=== PATIENT | male | born 1955 ===

== ENCOUNTER 2020-05-10 10:12 | Outpatient (REF) | payer OTHER, SELFPAY ==
[2020-05-10 10:59] LABS: MANUAL DIFF FLAG NO
[2020-05-10 11:02] LABS: Basophils Absolute Auto 0.1 X10*3/uL (0.0-0.2); Basophils Percent Auto 0.8 % (0-2); Eosinophils Absolute Auto 0.6 X10*3/uL (0.0-0.4); Eosinophils Percent Auto 5.3 % (0-4); Hematocrit 43.3 % (42-52); Hemoglobin 14.7 g/dl (14.0-18.0); Imm Gran Abs Auto 0.05 X10*3/uL (0.00-0.03); Imm Gran Pct Auto 0.4 % (0.0-0.4); Lymphocytes Absolute Auto 1.9 X10*3/uL (1.2-4.9); Lymphocytes Percent Auto 16.1 % (20-40); Mean Corpuscular HGB Conc 33.9 g/dl (31.0-36.0); Mean Corpuscular Hemoglobin 31.5 pg (27.0-33.0); Mean Corpuscular Volume 92.9 fL (80-98); Monocytes Absolute Auto 0.9 X10*3/uL (0.1-1.2); Monocytes Percent Auto 7.1 % (2-11); Neutrophils Absolute Auto 8.4 X10*3/uL (2.0-8.3); Neutrophils Percent Auto 70.3 % (45-73); Platelet Count 230 X10*3/uL (160-400); Red Blood Count 4.66 X10*6/uL (4.60-5.80); Red Cell Distribution Width 13.2 % (11.0-16.0)
[2020-05-10 11:34] LABS: Alanine Aminotransferase 14 U/L (0-40); Albumin Level 4.7 g/dL (3.5-5.0); Alkaline Phosphatase 52 U/L (39-117); Anion Gap 16 (12-20); Aspartate Amino Transferase 18 U/L (5-37); Bilirubin Total 0.4 mg/dL (0.0-1.0); Blood Urea Nitrogen 7 mg/dL (9-16); Calcium 9.1 mg/dL (8.4-10.2); Carbon Dioxide 24 mmol/L (22-29); Chloride 100 mmol/L (96-108); Cholesterol 217 mg/dL; Estimated Glomerular Filt Rate > 60; Gamma Glutamyl Transpeptidase 56 U/L (11-51); Glucose Fasting 100 mg/dL (60-99); HDL Cholesterol 38 mg/dL; LDL Cholesterol Calculated 160 mg/dl; Potassium 4.7 mmol/l (3.3-5.1); Sodium 135 mmol/L (135-145); Total Protein 7.8 g/dL (6.5-8.0); Triglycerides 99 mg/dL
[2020-05-10 11:36] LABS: Estimated Average Glucose 97 mg/dL
[2020-05-10 11:42] LABS: Phosphorus 3.3 mg/dL (2.7-4.5)
[2020-05-10 13:58] LABS: Renal w Reflex Lab Use Only Order verified
== END 2020-05-10 10:13 | disposition home or self-care (01) ==
LOC: HO.LAB 10:12
PROVIDERS: Absent Provider Internal Medicine Nephrology; PCP Internal Medicine Geriatric Medicine; Visit Provider Nurse Practitioner Psychiatric/Mental Health
DX: F34.1 Dysthymic disorder (principal); E87.1 Hypo-osmolality and hyponatremia; I10 Essential (primary) hypertension; E78.5 Hyperlipidemia, unspecified
CPT/HCPCS: 36415; 80053; 80061; 82947; 82977; 83036; 84100; 85025

== ENCOUNTER 2020-11-15 10:13 | Outpatient (REF) | payer OTHER, SELFPAY ==
[2020-11-15 12:05] LABS: Anion Gap 14 (12-20); Blood Urea Nitrogen 8 mg/dL (9-16); Calcium 9.8 mg/dL (8.4-10.2); Carbon Dioxide 22 mmol/L (22-29); Chloride 104 mmol/L (96-108); Estimated Glomerular Filt Rate > 60; Phosphorus 3.2 mg/dL (2.7-4.5); Potassium 4.3 mmol/L (3.3-5.1); Sodium 136 mmol/L (135-145)
[2020-11-15 12:58] LABS: Renal w Reflex Lab Use Only Order verified
[2020-11-15 13:35] LABS: Creatinine Urine 219.69 mg/dL; Microalbum/Creatinine Ratio Ur 14.5 ug/mg cr
== END 2020-11-15 10:14 | disposition home or self-care (01) ==
LOC: HO.LAB 10:13
PROVIDERS: Visit Provider Internal Medicine Nephrology
DX: I10 Essential (primary) hypertension (principal); E87.1 Hypo-osmolality and hyponatremia; E87.5 Hyperkalemia
CPT/HCPCS: 36415; 80051; 82043; 82310; 82565; 84100; 84520

== ENCOUNTER 2021-07-07 12:35 | Outpatient (REF) | payer MEDICARE, SELFPAY ==
[2021-07-07 13:10] LABS: Basophils Absolute Auto 0.1 X10*3/uL (0.0-0.2); Basophils Percent Auto 0.7 % (0-2); Eosinophils Absolute Auto 1.7 X10*3/uL (0.0-0.4); Eosinophils Percent Auto 15.2 % (0-4); Hematocrit 41.5 % (42.0-52.0); Hemoglobin 14.1 g/dl (14.0-18.0); Imm Gran Pct Auto 0.9 % (0.0-0.4); Lymphocytes Absolute Auto 2.9 X10*3/uL (1.2-4.9); Lymphocytes Percent Auto 26.9 % (20-40); MANUAL DIFF FLAG NO; Mean Corpuscular Volume 91.2 fL (80.0-98.0); Mean Platelet Volume 10.1 fL (9.4-12.4); Monocytes Absolute Auto 0.8 X10*3/uL (0.1-1.2); Neutrophils Absolute Auto 5.3 x10*3/uL (2.0-8.3); Neutrophils Percent Auto 49.3 % (45-73); Platelet Count 283 X10*3/uL (160-400); Red Blood Count 4.55 X10*6/uL (4.60-5.80); Red Cell Distribution Width 12.7 % (11.0-16.0); White Blood Count 10.8 X10*3/uL (4.8-10.8)
[2021-07-07 14:04] LABS: Alanine Aminotransferase 21 U/L (0-40); Albumin Level 4.7 g/dL (3.5-5.0); Alkaline Phosphatase 54 U/L (39-117); Anion Gap 15 (12-20); Aspartate Amino Transferase 18 U/L (5-37); Bilirubin Total 0.5 mg/dL (0.0-1.0); Blood Urea Nitrogen 6 mg/dL (9-16); Calcium 9.8 mg/dL (8.4-10.2); Carbon Dioxide 25 mmol/L (22-29); Chloride 104 mmol/L (96-108); Cholesterol 235 mg/dL; Estimated Glomerular Filt Rate > 60; Glucose Fasting 92 mg/dL (60-99); HDL Cholesterol 32 mg/dL; LDL Cholesterol Calculated 180 mg/dl; Potassium 4.9 mmol/L (3.3-5.1); Sodium 139 mmol/L (135-145); Total Protein 7.9 g/dL (6.5-8.0); Triglycerides 119 mg/dL
[2021-07-07 14:08] LABS: Estimated Average Glucose 108 mg/dL; Hemoglobin A1c % 5.4 %
== END 2021-07-07 12:36 | disposition home or self-care (01) ==
LOC: HO.LAB 12:35
PROVIDERS: PCP Internal Medicine Geriatric Medicine; Visit Provider Nurse Practitioner Psychiatric/Mental Health
DX: F34.1 Dysthymic disorder (principal)
CPT/HCPCS: 36415; 80053; 80061; 83036; 85025

== ENCOUNTER 2021-11-06 10:42 | Outpatient (REF) | payer OTHER, SELFPAY ==
[2021-11-06 12:11] LABS: Anion Gap 12 (12-20); Blood Urea Nitrogen 10 mg/dL (9-16); Calcium 9.4 mg/dL (8.4-10.2); Carbon Dioxide 25 mmol/L (22-29); Chloride 104 mmol/L (96-108); Estimated Glomerular Filt Rate > 60; Potassium 4.9 mmol/L (3.3-5.1); Sodium 136 mmol/L (135-145)
== END 2021-11-06 10:43 | disposition home or self-care (01) ==
LOC: HO.LAB 10:42
PROVIDERS: PCP Internal Medicine Geriatric Medicine; Visit Provider Internal Medicine Nephrology
DX: I10 Essential (primary) hypertension (principal)
CPT/HCPCS: 36415; 80051; 82310; 82565; 84520

== ENCOUNTER → 2022-03-29 08:48 | Outpatient (BNVA) | payer OTHER, SELFPAY | PROVIDERS: PCP Internal Medicine Geriatric Medicine; Referring Provider Internal Medicine Geriatric Medicine; Visit Provider Internal Medicine Cardiovascular Disease | DX: R07.9 Chest pain, unspecified (principal) | CPT/HCPCS: 93005; 99202 ==

== ENCOUNTER → 2022-04-25 09:07 | Outpatient (REF) | payer OTHER, SELFPAY ==
--- NOTE | 2022-04-25 09:09 | CA_ITS ---
Acquisition Time: 2022-04-25 10:28:37 Total Exercise Time: 00:06:34 Test Indications: CP Medications: SEE CHART Protocol: BRADLEY Max HR: 133 BPM 86% of Pred: 153 BPM Max BP: 168/080 mmHG Max Work Load: 7.8 METS Exercise stress test with exercise 6 min 34 sec of Bradley protocol, achieving 86% MPHR, 7.8 METs, with fatigue and request to stop, without anginal symptoms, without arrythmia, with normotensive response to exercise, without EKG changes meeting criteria for ischemia. Test reviewed with Dr Martínez Referred By: Amilcar Randhawa Overread By: ANDRA GARCIA
== END ==
LOC: HO.CARD 09:07
PROVIDERS: PCP Internal Medicine Geriatric Medicine; Visit Provider Internal Medicine Cardiovascular Disease
DX: R07.9 Chest pain, unspecified (principal)
CPT/HCPCS: 93017

== ENCOUNTER 2022-05-01 08:36 | Outpatient (REF) | payer OTHER, SELFPAY ==
[2022-05-01 08:53] LABS: MANUAL DIFF FLAG NO
[2022-05-01 09:22] LABS: Basophils Absolute Auto 0.1 X10*3/uL (0.0-0.2); Basophils Percent Auto 0.6 % (0-2); Eosinophils Absolute Auto 1.2 X10*3/uL (0.0-0.4); Hematocrit 37.9 % (42.0-52.0); Hemoglobin 13.4 g/dl (14.0-18.0); Imm Gran Abs Auto 0.07 X10*3/uL (0.00-0.03); Imm Gran Pct Auto 0.6 % (0.0-0.4); Lymphocytes Absolute Auto 2.4 X10*3/uL (1.2-4.9); Lymphocytes Percent Auto 21.1 % (20-40); Mean Corpuscular HGB Conc 35.4 g/dl (31.0-36.0); Mean Corpuscular Hemoglobin 31.8 pg (27.0-33.0); Mean Corpuscular Volume 89.8 fL (80.0-98.0); Monocytes Absolute Auto 0.8 X10*3/uL (0.1-1.2); Monocytes Percent Auto 6.5 % (2-11); Neutrophils Absolute Auto 7.1 x10*3/uL (2.0-8.3); Neutrophils Percent Auto 61.2 % (45-73); Platelet Count 310 X10*3/uL (160-400); Red Blood Count 4.22 X10*6/uL (4.60-5.80); Red Cell Distribution Width 12.3 % (11.0-16.0); White Blood Count 11.6 X10*3/uL (4.8-10.8)
[2022-05-01 09:56] LABS: Alanine Aminotransferase 24 U/L (0-40); Albumin Level 4.6 g/dL (3.5-5.0); Alkaline Phosphatase 52 U/L (39-117); Anion Gap 14 (12-20); Aspartate Amino Transferase 55 U/L (5-37); Bilirubin Total 0.4 mg/dL (0.0-1.0); Blood Urea Nitrogen 9 mg/dL (9-16); Calcium 9.6 mg/dL (8.4-10.2); Carbon Dioxide 22 mmol/L (22-29); Chloride 104 mmol/L (96-108); Cholesterol 110 mg/dL; Estimated Glomerular Filt Rate > 60; Glucose Fasting 104 mg/dL (60-99); HDL Cholesterol 35 mg/dL; LDL Cholesterol Calculated 58 mg/dl; Potassium 4.8 mmol/L (3.3-5.1); Sodium 135 mmol/L (135-145); Total Protein 7.4 g/dL (6.5-8.0); Triglycerides 89 mg/dL
== END 2022-05-01 08:37 | disposition home or self-care (01) ==
LOC: HO.LAB 08:36
PROVIDERS: PCP Internal Medicine Geriatric Medicine; Visit Provider Internal Medicine Geriatric Medicine
DX: Z13.220 Encounter for screening for lipoid disorders (principal); I10 Essential (primary) hypertension
CPT/HCPCS: 36415; 80053; 80061; 85025

== ENCOUNTER → 2022-07-12 09:12 | Outpatient (BNVA) | payer OTHER, SELFPAY | PROVIDERS: PCP Internal Medicine Geriatric Medicine; Referring Provider Internal Medicine Geriatric Medicine; Visit Provider Internal Medicine Cardiovascular Disease | DX: R07.9 Chest pain, unspecified (principal); I10 Essential (primary) hypertension | CPT/HCPCS: 93005; 99212 ==

== ENCOUNTER 2022-09-07 08:18 | Outpatient (REF) | payer OTHER, SELFPAY ==
[2022-09-07 08:42] LABS: MANUAL DIFF FLAG NO
[2022-09-07 08:57] LABS: Basophils Absolute Auto 0.1 X10*3/uL (0.0-0.2); Basophils Percent Auto 0.9 % (0-2); Eosinophils Absolute Auto 1.7 X10*3/uL (0.0-0.4); Eosinophils Percent Auto 16.4 % (0-4); Imm Gran Abs Auto 0.04 X10*3/uL (0.00-0.03); Imm Gran Pct Auto 0.4 % (0.0-0.4); Lymphocytes Absolute Auto 2.1 X10*3/uL (1.2-4.9); Lymphocytes Percent Auto 21.1 % (20-40); Mean Corpuscular HGB Conc 35.1 g/dl (31.0-36.0); Mean Corpuscular Hemoglobin 31.3 pg (27.0-33.0); Mean Corpuscular Volume 89.2 fL (80.0-98.0); Mean Platelet Volume 9.8 fL (9.4-12.4); Monocytes Absolute Auto 0.8 X10*3/uL (0.1-1.2); Monocytes Percent Auto 7.9 % (2-11); Neutrophils Absolute Auto 5.4 x10*3/uL (2.0-8.3); Neutrophils Percent Auto 53.3 % (45-73); Platelet Count 284 X10*3/uL (160-400); Red Blood Count 4.15 X10*6/uL (4.60-5.80); Red Cell Distribution Width 12.9 % (11.0-16.0); White Blood Count 10.1 X10*3/uL (4.8-10.8)
[2022-09-07 09:05] LABS: Estimated Average Glucose 105 mg/dL; Hemoglobin A1c % 5.3 %
[2022-09-07 09:42] LABS: Alanine Aminotransferase 13 U/L (0-40); Albumin Level 4.3 g/dL (3.5-5.0); Alkaline Phosphatase 52 U/L (39-117); Anion Gap 13 (12-20); Aspartate Amino Transferase 15 U/L (5-37); Bilirubin Total 0.4 mg/dL (0.0-1.0); Blood Urea Nitrogen 9 mg/dL (9-16); Calcium 9.4 mg/dL (8.4-10.2); Carbon Dioxide 25 mmol/L (22-29); Chloride 101 mmol/L (96-108); Cholesterol 119 mg/dL; Estimated Glomerular Filt Rate > 60; Glucose Fasting 101 mg/dL (60-99); Glucose Random 101 mg/dL (60-115); HDL Cholesterol 37 mg/dL; LDL Cholesterol Calculated 73 mg/dl; Potassium 4.8 mmol/L (3.3-5.1); Sodium 134 mmol/L (135-145); Total Protein 6.8 g/dL (6.5-8.0); Triglycerides 46 mg/dL
== END 2022-09-07 08:19 | disposition home or self-care (01) ==
LOC: HO.LAB 08:18
PROVIDERS: PCP Internal Medicine Geriatric Medicine; Visit Provider Nurse Practitioner Psychiatric/Mental Health
DX: F34.1 Dysthymic disorder (principal)
CPT/HCPCS: 36415; 80053; 80061; 82947; 83036; 85025

== ENCOUNTER → 2022-10-24 09:50 | Outpatient (BNVA) | payer OTHER, SELFPAY | PROVIDERS: PCP Internal Medicine Geriatric Medicine; Visit Provider Internal Medicine Cardiovascular Disease | DX: R07.9 Chest pain, unspecified (principal); I10 Essential (primary) hypertension | CPT/HCPCS: 99212 ==

== ENCOUNTER 2022-12-11 08:08 | Outpatient (REF) | payer OTHER, SELFPAY ==
--- NOTE | ~2022-12-11 | XR_ITS ---
EXAMINATION: XR SHOULDER, LEFT CLINICAL INFORMATION: Left shoulder pain COMPARISON: None available. TECHNIQUE: AP external rotation, Grashey, scapular Y, and axillary views of the left shoulder. FINDINGS: The bones and soft tissues are normal. No fracture. Glenohumeral and acromioclavicular alignment is anatomic with normal joint space. No abnormal soft tissue calcifications. XR/XR shoulder LT min 2V IMPRESSION: Normal left shoulder.
--- NOTE | ~2022-12-11 | XR_ITS ---
EXAMINATION: XR SHOULDER, RIGHT CLINICAL INFORMATION: Right shoulder pain COMPARISON: None available. TECHNIQUE: AP external rotation, Grashey, scapular Y, and axillary views of the right shoulder. FINDINGS: The bones and soft tissues are normal. No fracture. Glenohumeral alignment is anatomic with normal joint space. There are mild degenerative changes right acromioclavicular joint with spurring. No abnormal soft tissue calcifications. XR/XR shoulder RT min 2V IMPRESSION: Mild degenerative changes in the right acromioclavicular joint
--- NOTE | ~2022-12-11 | XR_ITS ---
EXAMINATION: XR CERVICAL SPINE CLINICAL INFORMATION: Neck pain COMPARISON: None TECHNIQUE: 6 views of the cervical spine, inclusive of flexion and extension views, were obtained. FINDINGS: There are postsurgical changes seen in the cervical spine with hardware in the identified at the level of C5-C6 and C6-C7 with almost complete fusion of C5-C6 intervertebral disc space and fusion of C5-C7. There is narrowing cough of C3-C4 and C4-C5 intervertebral disc spaces. Marginal spurring present at the level of C3 C3 and C4. Neuroforamina are not encroached. Soft tissues are normal. There is no fracture seen. XR/XR cervical spine 5V IMPRESSION: Postsurgical changes with hardware in place. Degenerative changes seen at the level of C3-C4 and C4-C5.
== END 2022-12-11 08:09 | disposition home or self-care (01) ==
LOC: HO.XRAY 08:08
PROVIDERS: PCP Internal Medicine Geriatric Medicine; Visit Provider Internal Medicine Geriatric Medicine
DX: M54.2 Cervicalgia (principal); M25.511 Pain in right shoulder; M25.512 Pain in left shoulder
CPT/HCPCS: 72050; 73030

== ENCOUNTER 2023-04-05 11:55 | Outpatient (AMB) | payer OTHER, SELFPAY ==
--- NOTE | 2023-04-05 12:02 | HO.NEPHOV_ITS ---
HPI HPI Comments History of Present Illness Details Yogesh was seen in follow-up of his hypertension. He feels well. He does not have any chest pain, shortness of breath, proximal nocturnal dyspnea, orthopnea, pedal edema or urinary symptoms. He has no orthostatic symptoms either. He checks his blood pressure at home and is at goal. He is tolerating all his medications including angiotensin receptor michael. He avoids nonsteroidal anti-inflammatory medications and maintains good hydration. He has no history of recent drug use. He has no proteinuria. He monitors his blood pressure closely at home and is at goal. [facility] Surgical History History of surgery on arm History of left knee surgery Family History Mother Diabetes Father Heart disease Social History Alcohol intake: current Alcohol intake frequency: holidays/special occasions only Patient Tobacco Use Status: Never used Tobacco Vital Signs 04/05/23 12:03 Height 5 ft 5.5 in Weight 165 lb 6 oz BMI 27.1 BP 110/60 Blood Pressure Location Rt brachial Position Sitting Pulse 68 Pulse Source Pulse Oximeter Physical Exam Vital Signs: Last Vital Signs Pulse 68 04/05/23 12:03 BP 110/60 04/05/23 12:03 BMI result Body Mass Index 27.1 Const General: comfortable and no acute distress Orientation/consciousness: patient oriented x3 HEENT Head: Yes normocephalic Mouth: Normal oral and palatal mucosa present Eyes EOM: EOMs intact bilaterally Neck Neck: Yes supple Resp Auscultation: clear to auscultation bilaterally Cardio Jugular venous distension: no JVD Rate: regular rate GI Palpation (GI): Soft to palpation Auscultation: normal bowel sounds General: Yes no CVA tenderness Back/Spine/Pelvis Back: no CVA tenderness Skin General skin exam: no rashes or lesions noted Neuro General: patient oriented x3 and moves all extremities Extrem General: Yes no pedal edema Assessment & Plan Assessment & Plan (1) Essential hypertension: Code(s): I10 - Essential (primary) hypertension Plan Yogesh has longstanding hypertension and currently his blood pressure is at goal. He monitors his blood pressure at home every day. He is tolerating all his current medications including angiotensin receptor michael. His serum potassium and renal functions are at baseline. He is not known to have any proteinuria. He clinically has no signs of heart failure. He denies having retinopathy. I did not make any medication changes today. No refills requested. Follow-up blood work and urine studies ordered. All questions answered. Follow-up given. Orders: Orders Electrolytes 04/05/23 I10 - Essential (primary) hypertension Calcium 04/05/23 I10 - Essential (primary) hypertension Blood Urea Nitrogen 04/05/23 I10 - Essential (primary) hypertension Creatinine 04/05/23 I10 - Essential (primary) hypertension Protein Creatinine Ratio, Ur 04/05/23 I10 - Essential (primary) hypertension Coding Level of Care Code Est Pt Level 3 (59783) Diagnoses Essential hypertension I10 Results Reviewed Nephrology Results: Hgb 13.0 g/dl (14.0-18.0) L 09/07/22 WBC 10.1 X10*3/uL (4.8-10.8) 09/07/22 Plt Count 284 X10*3/uL (160-400) 09/07/22 Sodium 134 mmol/L (135-145) L 09/07/22 Potassium 4.8 mmol/L (3.3-5.1) 09/07/22 Chloride 101 mmol/L (96-108) 09/07/22 Carbon Dioxide 25 mmol/L (22-29) 09/07/22 BUN 9 mg/dL (9-16) 09/07/22 Creatinine 0.87 mg/dL (0.5-1.4) 09/07/22 Calcium 9.4 mg/dL (8.4-10.2) 09/07/22
[2023-04-05 12:03] VITALS: BP 110/60; PULSE 68; BMI 27.1
== END 2023-04-05 12:23 | disposition home or self-care (01) ==
PROVIDERS: PCP Internal Medicine Geriatric Medicine; Visit Provider Internal Medicine Nephrology
DX: I10 Essential (primary) hypertension (principal)
CPT/HCPCS: 99213

== ENCOUNTER → 2023-04-05 11:55 | Outpatient (BNVA) | payer OTHER, SELFPAY | PROVIDERS: PCP Internal Medicine Geriatric Medicine; Visit Provider Internal Medicine Nephrology | DX: I10 Essential (primary) hypertension (principal) | CPT/HCPCS: 99212 ==

== ENCOUNTER 2023-04-29 09:22 | Outpatient (AMB) | payer OTHER, SELFPAY ==
[2023-04-29 09:43] VITALS: BP 110/62; BMI 27.5
--- NOTE | 2023-04-29 09:43 | MHC.OFFVIS ---
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 Accompanied by: Self / Same As Patient Allergies lisinopril [LISINOPRIL] Allergy (Unknown, Verified 04/05/23 12:05) LIP SWELLING Medication List - Last Reconciled 04/29/23 by Amilcar Randhawa MD amlodipine 10 mg PO DAILY aripiprazole 5 mg PO DAILY atorvastatin 20 mg PO DAILY clonidine HCl 0.2 mg PO BEDTIME docusate sodium 100 mg PO BID melatonin 10 mg PO BEDTIME metoprolol succinate ER 75 mg PO DAILY mirtazapine 30 mg PO BEDTIME telmisartan 40 mg PO DAILY trazodone 50 mg PO BEDTIME zolpidem 10 mg PO BEDTIME PRN HPI HPI Comments History of Present Illness Details Pleasant 67 gentleman here for follow-up. He was seen previously with chest discomfort. He was referred for exercise stress test where he was able to exercise for 6 minutes 34 seconds and achieved 86% of his maximum predicted heart rate and 7.8 metabolic equivalents. He had a normal blood pressure response to exercise. He did not have any chest discomfort or EKG changes. His returning for follow-up. He said 2-3 days ago he had left-sided pressure-like sensation on a small area of the chest. He said this would come and go and lasted approximately 30 minutes. He said he has been exercising regularly including some running and weights and does not get any symptoms with exercise. He has exercised after this event on Saturday and did not have any symptoms. Blood pressure control is good. 10/24/22: He returns for follow-up. He has been active and exercising in the gym without any exertional symptoms. Occasionally gets left-sided pressure-like feeling lasting for 3 seconds usually when he sitting down watching television. He is compliant with medications. His blood pressure control is good. 04/29/2023: He returns for follow-up. He said he had some more discomfort in October but since then has not had any chest discomfort. Denying any other issues currently. Blood pressure is well controlled on multiple medications. He follows with Nephrology. [facility] Surgical History History of surgery on arm History of left knee surgery Family History Mother Diabetes Father Heart disease Social History Alcohol intake: current Alcohol intake frequency: holidays/special occasions only Patient Tobacco Use Status: Never used Tobacco Review of Systems Const Reports chills, Reports fatigue, Reports fever(s), Reports frequent falls, Reports weakness, Reports weight gain and Reports weight loss ENT Reports dizziness Card Reports chest pain, Reports leg edema, Reports lightheadedness, Reports palpitations, Reports dyspnea and Reports dyspnea on exertion Resp Reports cough, Reports dyspnea and Reports dyspnea on exertion GI Reports hematochezia Musc Reports abnormal gait, Reports muscle weakness, Reports numbness, Reports radiating pain into limb and Reports tingling Neuro Reports abnormal gait, Reports dizziness, Reports frequent falls, Reports numbness, Reports tingling and Reports weakness Endo Reports fatigue and Reports palpitations Physical Exam Vital Signs: Last Vital Signs BP 110/62 04/29/23 09:43 BMI result Body Mass Index 27.5 GENERAL APPEARANCE: in no acute distress, pleasant. NECK: no carotid bruit, no jugular venous distention. SKIN: no suspicious lesions, warm and dry. HEART: no murmurs, regular rate and rhythm. LUNGS: clear to auscultation bilaterally. ABDOMEN: soft, nontender. EXTREMITIES: no edema. PERIPHERAL PULSES: equal. NEUROLOGIC: No gross deficits, AAO X 3 Assessment & Plan Assessment & Plan (1) Essential hypertension: Code(s): I10 - Essential (primary) hypertension (2) Chest pain: Code(s): R07.9 - Chest pain, unspecified Plan Pleasant 67 year gentleman here for follow-up. He has background of non anginal chest discomfort. He has not had any symptoms for many months. Clinically stable. Blood pressure is well controlled on multiple medications including amlodipine, clonidine, metoprolol and telmisartan. He follows with Nephrology for hypertension. Follow-up with us in 6 months. Thank you for allowing me to participate in the care of your patient. Please feel free to contact me if you have any questions. Coding Level of Care Code Est Pt Level 3 (42686) Diagnoses Essential hypertension I10 Chest pain R07.9
== END 2023-04-29 10:03 | disposition home or self-care (01) ==
PROVIDERS: PCP Internal Medicine Geriatric Medicine; Visit Provider Internal Medicine Cardiovascular Disease
DX: I10 Essential (primary) hypertension (principal); R07.9 Chest pain, unspecified
CPT/HCPCS: 99213

== ENCOUNTER → 2023-04-29 09:22 | Outpatient (BNVA) | payer OTHER, SELFPAY | PROVIDERS: PCP Internal Medicine Geriatric Medicine; Visit Provider Internal Medicine Cardiovascular Disease | DX: I10 Essential (primary) hypertension (principal); R07.9 Chest pain, unspecified | CPT/HCPCS: 99212 ==

== ENCOUNTER 2023-07-02 08:04 | Outpatient (REF) | payer OTHER, SELFPAY ==
[2023-07-02 09:52] LABS: Anion Gap 9 (12-20); Blood Urea Nitrogen 10 mg/dL (9-16); Calcium 9.1 mg/dL (8.4-10.2); Carbon Dioxide 27 mmol/L (22-29); Chloride 108 mmol/L (96-108); Estimated Glomerular Filt Rate > 60; Potassium 3.8 mmol/L (3.3-5.1); Sodium 140 mmol/L (135-145)
[2023-07-02 10:26] LABS: Creatinine Urine 139.14 mg/dL; Protein/Creatinine Ratio, Ur 0.11 (<0.2); Total Protein Urine Random 15 mg/dL (<12)
== END 2023-07-02 08:05 | disposition home or self-care (01) ==
LOC: HO.LAB 08:04
PROVIDERS: PCP Internal Medicine Geriatric Medicine; Visit Provider Internal Medicine Nephrology
DX: I10 Essential (primary) hypertension (principal)
CPT/HCPCS: 36415; 80051; 82310; 82565; 82570; 84156; 84520

== ENCOUNTER 2023-08-09 09:23 | Outpatient (AMB) | payer OTHER, SELFPAY ==
[2023-08-09 10:23] VITALS: BP 130/74; PULSE 65; O2SAT 97; BMI 25.7
--- NOTE | 2023-08-09 10:23 | HO.NEPHOV_ITS ---
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 He feels well. He does not have any chest pain, shortness of breath, proximal nocturnal dyspnea, orthopnea, pedal edema or urinary symptoms. He has no orthostatic symptoms either. He checks his blood pressure at home and is at goal. He is tolerating all his medications including angiotensin receptor michael. He avoids nonsteroidal anti-inflammatory medications and maintains good hydration. He has no history of recent drug use. He has no proteinuria. He monitors his blood pressure closely at home and is at goal. [facility] Surgical History History of surgery on arm History of left knee surgery Family History Mother Diabetes Father Heart disease Social History Alcohol intake: current Alcohol intake frequency: holidays/special occasions only Patient Tobacco Use Status: Never used Tobacco Physical Exam Vital Signs: Last Vital Signs Pulse 65 08/09/23 10:23 BP 130/74 08/09/23 10:23 Pulse Ox 97 08/09/23 10:23 Oxygen Delivery Method Room Air 08/09/23 10:23 BMI result Body Mass Index 25.7 Const General: comfortable and no acute distress Orientation/consciousness: patient oriented x3 HEENT Head: Yes normocephalic Mouth: Normal oral and palatal mucosa present Eyes EOM: EOMs intact bilaterally Neck Neck: Yes supple Resp Auscultation: clear to auscultation bilaterally Cardio Jugular venous distension: no JVD Rate: regular rate GI Palpation (GI): Soft to palpation Auscultation: normal bowel sounds General: Yes no CVA tenderness Back/Spine/Pelvis Back: no CVA tenderness Skin General skin exam: no rashes or lesions noted Neuro General: patient oriented x3 and moves all extremities Extrem General: Yes no pedal edema Results Reviewed Nephrology Results: Hgb 13.0 g/dl (14.0-18.0) L 09/07/22 WBC 10.1 X10*3/uL (4.8-10.8) 09/07/22 Plt Count 284 X10*3/uL (160-400) 09/07/22 Sodium 140 mmol/L (135-145) 07/02/23 Potassium 3.8 mmol/L (3.3-5.1) 07/02/23 Chloride 108 mmol/L (96-108) 07/02/23 Carbon Dioxide 27 mmol/L (22-29) 07/02/23 BUN 10 mg/dL (9-16) 07/02/23 Creatinine 0.91 mg/dL (0.5-1.4) 07/02/23 Calcium 9.1 mg/dL (8.4-10.2) 07/02/23 Urine Creatinine 139.14 mg/dL 07/02/23 Protein/Creatinin Ratio 0.11 (<0.2) 07/02/23 Assessment & Plan Assessment & Plan (1) Essential hypertension: Code(s): I10 - Essential (primary) hypertension Category: Medical Plan Yogesh has longstanding hypertension and currently his blood pressure is at goal. He monitors his blood pressure at home every day. He is tolerating all his c urrent medications including angiotensin receptor michael. His serum potassium and renal functions are at baseline. He is not known to have any proteinuria. He clinically has no signs of heart failure. He denies having retinopathy. I did not make any medication changes today. No refills requested. Follow-up blood work ordered. All questions answered. Follow-up given. Orders: Orders Blood Urea Nitrogen Today I10 - Essential (primary) hypertension Electrolytes Today I10 - Essential (primary) hypertension Creatinine Today I10 - Essential (primary) hypertension
== END 2023-08-09 10:54 | disposition home or self-care (01) ==
PROVIDERS: PCP Internal Medicine Geriatric Medicine; Visit Provider Internal Medicine Nephrology
DX: I10 Essential (primary) hypertension (principal)
CPT/HCPCS: 99214

== ENCOUNTER 2023-08-09 09:23 | Outpatient (REF) | payer OTHER, SELFPAY ==
[2023-08-09 11:20] LABS: MANUAL DIFF FLAG NO
[2023-08-09 12:06] LABS: Basophils Absolute Auto 0.1 X10*3/uL (0.0-0.2); Basophils Percent Auto 0.9 % (0-2); Eosinophils Absolute Auto 0.7 X10*3/uL (0.0-0.4); Eosinophils Percent Auto 9.3 % (0-4); Hematocrit 41.3 % (42.0-52.0); Imm Gran Abs Auto 0.03 X10*3/uL (0.00-0.03); Imm Gran Pct Auto 0.4 % (0.0-0.4); Lymphocytes Absolute Auto 1.9 X10*3/uL (1.2-4.9); Mean Corpuscular HGB Conc 33.9 g/dl (31.0-36.0); Mean Corpuscular Hemoglobin 30.7 pg (27.0-33.0); Mean Corpuscular Volume 90.6 fL (80.0-98.0); Mean Platelet Volume 10.3 fL (9.4-12.4); Monocytes Absolute Auto 0.6 X10*3/uL (0.1-1.2); Monocytes Percent Auto 7.9 % (2-11); Neutrophils Absolute Auto 4.4 x10*3/uL (2.0-8.3); Neutrophils Percent Auto 56.5 % (45-73); Platelet Count 261 X10*3/uL (160-400); Red Blood Count 4.56 X10*6/uL (4.60-5.80); Red Cell Distribution Width 12.9 % (11.0-16.0); White Blood Count 7.7 X10*3/uL (4.8-10.8)
[2023-08-09 12:47] LABS: Alanine Aminotransferase 16 U/L (0-40); Albumin Level 4.7 g/dL (3.5-5.0); Alkaline Phosphatase 64 U/L (39-117); Anion Gap 13 (12-20); Aspartate Amino Transferase 18 U/L (5-37); Bilirubin Total 0.4 mg/dL (0.0-1.0); Blood Urea Nitrogen 10 mg/dL (9-16); Calcium 9.4 mg/dL (8.4-10.2); Carbon Dioxide 26 mmol/L (22-29); Chloride 106 mmol/L (96-108); Cholesterol 186 mg/dL (<200); Estimated Glomerular Filt Rate > 60; Glucose Random 105 mg/dL (60-115); HDL Cholesterol 44 mg/dL (>40); LDL Cholesterol Calculated 132 mg/dL (<100); Potassium 4.5 mmol/L (3.3-5.1); Sodium 140 mmol/L (135-145); Total Protein 7.9 g/dL (6.5-8.0); Triglycerides 54 mg/dL (<150)
[2023-08-09 12:49] LABS: ~HepC Num1 0.05 S/CO (0.00-0.79); ~Hepatitis C Antibody Nonreactive (Nonreactive)
== END 2023-08-09 09:24 | disposition home or self-care (01) ==
LOC: HO.LAB 09:23
PROVIDERS: PCP Internal Medicine Geriatric Medicine; Visit Provider Internal Medicine Nephrology
DX: Z11.59 Encounter for screening for other viral diseases (principal); Z12.5 Encounter for screening for malignant neoplasm of prostate; I10 Essential (primary) hypertension; E78.00 Pure hypercholesterolemia, unspecified; R73.02 Impaired glucose tolerance (oral)
CPT/HCPCS: 36415; 80053; 80061; 84153; 85025; 86803; 99212

== ENCOUNTER 2023-11-04 09:44 | Outpatient (AMB) | payer OTHER, SELFPAY ==
[2023-11-04 09:54] VITALS: BP 110/64; PULSE 60; BMI 26.9
--- NOTE | 2023-11-04 09:54 | MHC.OFFVIS ---
Vital Signs 11/04/23 09:54 Height 5 ft 5.5 in Weight 164 lb 7.437 oz BMI 26.9 BP 110/64 Blood Pressure Location Lt brachial Position Sitting Pulse 60 Pulse Source Monitor Intake Visit Reasons: 6 mth f/up Intake Note: pt is here for his 6mth f/up/ pt state that he is doing fine today but like a week ago he felt like a chest tightness that lasted roughly like 5-6 seconds then after that he have been feeling fine. 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 He was seen previously with chest discomfort. He was referred for exercise stress test where he was able to exercise for 6 minutes 34 seconds and achieved 86% of his maximum predicted heart rate and 7.8 metabolic equivalents. He had a normal blood pressure response to exercise. He did not have any chest discomfort or EKG changes. His returning for follow-up. He said 2-3 days ago he had left-sided pressure-like sensation on a small area of the chest. He said this would come and go and lasted approximately 30 minutes. He said he has been exercising regularly including some running and weights and does not get any symptoms with exercise. He has exercised after this event on Saturday and did not have any symptoms. Blood pressure control is good. 10/24/22: He returns for follow-up. He has been active and exercising in the gym without any exertional symptoms. Occasionally gets left-sided pressure-like feeling lasting for 3 seconds usually when he sitting down watching television. He is compliant with medications. His blood pressure control is good. 04/29/2023: He returns for follow-up. He said he had some more discomfort in October but since then has not had any chest discomfort. Denying any other issues currently. Blood pressure is well controlled on multiple medications. He follows with Nephrology. 11/04/23: He is here for follow-up. He has been doing well. No exertional complaints. Occasionally gets left-sided pressure-like sensation lasting for 3-5 seconds randomly. During exertion and activities he has no symptoms. Blood pressure is well controlled. He is following with Nephrology also. [facility] Surgical History History of surgery on arm History of left knee surgery Family History Mother Diabetes Father Heart disease Social History Alcohol intake: current Alcohol intake frequency: holidays/special occasions only Patient Tobacco Use Status: Never used Tobacco Review of Systems Const Denies chills, Denies fatigue, Denies fever(s), Denies frequent falls, Denies weakness, Denies weight gain and Denies weight loss ENT Denies dizziness Card Denies chest pain, Denies leg edema, Denies lightheadedness, Denies palpitations, Denies dyspnea and Denies dyspnea on exertion Resp Denies cough, Denies dyspnea and Denies dyspnea on exertion GI Denies hematochezia Musc Denies abnormal gait, Denies muscle weakness, Denies numbness, Denies radiating pain into limb and Denies tingling Neuro Denies abnormal gait, Denies dizziness, Denies frequent falls, Denies numbness, Denies tingling and Denies weakness Endo Denies fatigue and Denies palpitations Physical Exam Vital Signs: Last Vital Signs Pulse 60 11/04/23 09:54 BP 110/64 11/04/23 09:54 BMI result Body Mass Index 26.9 GENERAL APPEARANCE: in no acute distress, pleasant. NECK: no carotid bruit, no jugular venous distention. SKIN: no suspicious lesions, warm and dry. HEART: no murmurs, regular rate and rhythm. LUNGS: clear to auscultation bilaterally. ABDOMEN: soft, nontender. EXTREMITIES: no edema. PERIPHERAL PULSES: equal. NEUROLOGIC: No gross deficits, AAO X 3 Office Procedures EKG Details: Sinus rhythm 60 beats per minute, nonspecific ST changes, QTC 408 milliseconds. [id number], Complete Assessment & Plan Assessment & Plan (1) Essential hypertension: Code(s): I10 - Essential (primary) hypertension Category: Medical (2) Chest pain: Code(s): R07.9 - Chest pain, unspecified Category: Medical Plan [age] year gentleman with noncardiac chest pain. Blood pressure is well controlled. Overall stable and has been doing well. No exertional complaints. He is following with Nephrology closely for hypertension. I have advised him to see us in 1 year. If he is stable at 1 year then we will change his follow-up to as needed. Thank you for allowing me to participate in the care of your patient. Please feel free to contact me if you have any questions. Coding Level of Care Code Est Pt Level 3 (68487) Diagnoses Essential hypertension I10 Chest pain R07.9 CPT Codes EKG - CPT: 92923-[id number], Complete ([id number])
== END 2023-11-04 10:17 | disposition home or self-care (01) ==
PROVIDERS: PCP Internal Medicine Geriatric Medicine; Visit Provider Internal Medicine Cardiovascular Disease
DX: I10 Essential (primary) hypertension (principal); R07.9 Chest pain, unspecified
CPT/HCPCS: 93010; 99213

== ENCOUNTER → 2023-11-04 09:44 | Outpatient (BNVA) | payer OTHER, SELFPAY | PROVIDERS: PCP Internal Medicine Geriatric Medicine; Visit Provider Internal Medicine Cardiovascular Disease | DX: I10 Essential (primary) hypertension (principal); R07.9 Chest pain, unspecified | CPT/HCPCS: 93005; 99212 ==

== ENCOUNTER 2023-12-09 10:10 | Outpatient (REF) | payer OTHER, SELFPAY ==
[2023-12-09 11:21] LABS: Anion Gap 14 (12-20); Blood Urea Nitrogen 8 mg/dL (9-16); Carbon Dioxide 23 mmol/L (22-29); Chloride 106 mmol/L (96-108); Estimated Glomerular Filt Rate > 60; Potassium 3.6 mmol/L (3.3-5.1); Sodium 139 mmol/L (135-145)
== END 2023-12-09 10:11 | disposition home or self-care (01) ==
LOC: HO.LAB 10:10
PROVIDERS: PCP Internal Medicine Geriatric Medicine; Visit Provider Internal Medicine Nephrology
DX: I10 Essential (primary) hypertension (principal)
CPT/HCPCS: 36415; 80051; 82565; 84520

== ENCOUNTER 2024-01-03 09:05 | Outpatient (AMB) | payer OTHER, SELFPAY ==
--- NOTE | 2024-01-03 09:28 | HO.NEPHOV ---
Vital Signs 01/03/24 09:29 Height 5 ft 5.5 in Weight 164 lb 2 oz BMI 26.9 BP 110/60 Blood Pressure Location Rt brachial Position Sitting Pulse 73 Pulse Source Pulse Oximeter Pulse Oximetry (%) 96 Oxygen Delivery Method Room Air Intake Visit Reasons: Essential hypertension/ 4 MO FU Radiographer Mammographer Required: No Accompanied by: Self / Same As Patient Allergies lisinopril [LISINOPRIL] Allergy (Unknown, Verified 01/03/24 09:31) LIP SWELLING HPI Comments Details: Yogesh was seen in follow-up of his hypertension. He feels well. He does not have any chest pain, shortness of breath, proximal nocturnal dyspnea, orthopnea, pedal edema or urinary symptoms. He has no orthostatic symptoms either. He checks his blood pressure at home and is at goal. He is tolerating all his medications including angiotensin receptor michael. He avoids nonsteroidal anti-inflammatory medications and maintains good hydration. He has no history of recent drug use. He has no proteinuria. He monitors his blood pressure closely at home and is at goal. [facility] Surgical History History of surgery on arm History of left knee surgery Family History Mother Diabetes Father Heart disease Social History Alcohol intake: current Alcohol intake frequency: holidays/special occasions only Patient Tobacco Use Status: Never used Tobacco Review of Systems Const All systems reviewed & are unremarkable except as noted in HPI and below Physical Exam Vital Signs: Last Vital Signs Pulse 73 01/03/24 09:29 BP 110/60 01/03/24 09:29 Pulse Ox 96 01/03/24 09:29 Oxygen Delivery Method Room Air 01/03/24 09:29 BMI result Body Mass Index 26.9 Const General: comfortable and no acute distress Orientation/consciousness: patient oriented x3 HEENT Head: Yes normocephalic Mouth: Normal oral and palatal mucosa present Eyes EOM: EOMs intact bilaterally Neck Neck: Yes supple Resp Auscultation: clear to auscultation bilaterally Cardio Jugular venous distension: no JVD Rate: regular rate GI Palpation (GI): Soft to palpation Auscultation: normal bowel sounds General: Yes no CVA tenderness Back/Spine/Pelvis Back: no CVA tenderness Skin General skin exam: no rashes or lesions noted Neuro General: patient oriented x3 and moves all extremities Extrem General: Yes no pedal edema Results Reviewed Nephrology Results: Hgb 14.0 g/dl (14.0-18.0) 08/09/23 WBC 7.7 X10*3/uL (4.8-10.8) 08/09/23 Plt Count 261 X10*3/uL (160-400) 08/09/23 Sodium 139 mmol/L (135-145) 12/09/23 Potassium 3.6 mmol/L (3.3-5.1) 12/09/23 Chloride 106 mmol/L (96-108) 12/09/23 Carbon Dioxide 23 mmol/L (22-29) 12/09/23 BUN 8 mg/dL (9-16) L 12/09/23 Creatinine 1.04 mg/dL (0.5-1.4) 12/09/23 Calcium 9.4 mg/dL (8.4-10.2) 08/09/23 Urine Creatinine 139.14 mg/dL 07/02/23 Protein/Creatinin Ratio 0.11 (<0.2) 07/02/23 Assessment & Plan Assessment & Plan (1) Essential hypertension: Code(s): I10 - Essential (primary) hypertension Category: Medical Plan Yogesh has longstanding hypertension and currently his blood pressure is at goal. He monitors his blood pressure at home every day. He is tolerating all his current medications including angiotensin receptor mcihael. His serum potassium and renal functions are at baseline. He is not known to have any proteinuria. He clinically has no signs of heart failure. He denies having retinopathy. I did not make any medication changes today. No refills requested. Follow-up blood work ordered. All questions answered. Follow-up given. Orders: Orders Blood Urea Nitrogen Today I10 - Essential (primary) hypertension Creatinine Today I10 - Essential (primary) hypertension Electrolytes Today I10 - Essential (primary) hypertension Coding Level of Care Code Est Pt Level 4 (83533) Diagnoses Essential hypertension I10
[2024-01-03 09:29] VITALS: BP 110/60; PULSE 73; O2SAT 96; BMI 26.9
== END 2024-01-03 09:42 | disposition home or self-care (01) ==
PROVIDERS: PCP Internal Medicine Geriatric Medicine; Visit Provider Internal Medicine Nephrology
DX: I10 Essential (primary) hypertension (principal)
CPT/HCPCS: 99214

== ENCOUNTER → 2024-01-03 09:05 | Outpatient (BNVA) | payer OTHER, SELFPAY | PROVIDERS: PCP Internal Medicine Geriatric Medicine; Visit Provider Internal Medicine Nephrology | DX: I10 Essential (primary) hypertension (principal) | CPT/HCPCS: 99212 ==

== ENCOUNTER 2024-03-25 08:08 | Outpatient (REF) | payer OTHER, SELFPAY ==
[2024-03-25 09:38] LABS: Anion Gap 12 (12-20); Blood Urea Nitrogen 11 mg/dL (9-16); Carbon Dioxide 25 mmol/L (22-29); Chloride 108 mmol/L (96-108); Cholesterol 108 mg/dL (<200); Estimated Glomerular Filt Rate > 60; HDL Cholesterol 35 mg/dL (>40); LDL Cholesterol Calculated 64 mg/dL (<100); Potassium 3.6 mmol/L (3.3-5.1); Sodium 141 mmol/L (135-145); Triglycerides 46 mg/dL (<150)
--- OUTSIDE RECORDS SUMMARY | 2024-03-31 16:24 | XMS_ITS ---
Demographics Address [address] [place] [address] Preferred Language en Marital Status unmarried Islam Affiliation Unknown Race Ethnic Group or Author Organization [facility] Address [address] [place] [address] Support Name Relationship Address Phone Ana Sixto Emergency Contact [address] [place] [address] ELISE DRUMMOND Guarantor Unknown [phone] Care Team Providers Care Grid Operator Name Role Phone Name Jean GRIFFITH Primary Care Provider Eriberto Rey [phone] ALLERGIES Allergen (clinical drug ingredient) Drug/Non Drug Allergy documented on EMR Reaction Allergy Type Onset Date Status lisinopril Lisinopril Unknown Drug Allergy Activ e REASON FOR VISIT Patient presents today for a discuss colonoscopy MEDICATIONS Medication SIG (Take, Route, Frequency, Duration) Notes Start Date End Date Status Micardis 40 MG 1 tablet Orally Once a day Active amLODIPine Besylate 10 MG 1 tablet Orall y Once a day Active cloNIDine HCl 0.1 MG 1 tablet at bedtime Orally Once a day Active Melatonin 5 MG 1 tablet at bedtime as needed with food Orally Once a day Active Zolpidem Tartrate 10 MG 1 tablet at bedt monica as needed Orally Once a day Active Toprol XL 50 MG 1 1/2 tablet Orally Once a day Active Mirtazapine 15 MG 1 tablet at bedtime Orally Once a day Active traZODone HCl 50 MG Oral for 90 Active Metoprolol Tartrate 75 MG 1 tablet with food Orally Twice a day Active Atorvastatin Calcium 20 MG Oral for 90 Active ARIPiprazole 5 MG Oral for 90 Active Telmisartan 40 MG 1 tablet Orally Once a day Active SOCIAL HISTORY Tobacco Use: Social History Observation Description Date Details (start date - stop date) Never Smoker NA - NA Sex Assigned At : Social History Observation Description Sex Assigned At Unknown Tobacco Use/Smoking Question Answer Notes Patient is a nonsmoker Alcohol Screen Question Answer Notes Did you have a drink containing alcohol in the p ast year? Yes How often did you have a dri nk containing alcohol in the past year? Never (0 point) Points 0 Interpretation Negative PROBLEMS Problem Type ICD Code Onset Dates Problem Status W/U Status Risk SNOMED Code Notes Problem Chronic constipation (K59.09) Active confirmed Chronic constipation (617381809) VITAL SIGNS BMI 24.36 kg/m2 02/25/2024 Blood pressure systolic 00 mm Hg 02/25/20 24 Blood pressure diastolic 00 mm Hg 024 Height 69 in 02/25/2024 Weight 165 lbs 02/25/2024 Encounters Encounter Location Date Provider Diagnosis [facility] [address] [place] [address] 02/25/2024 Eriberto Berry Hx of adenomatous colonic polyps Z86.010 ; Chronic constipation K59.09 ; Encounter for screening for malignant neoplasm of colon Z12.11 and Pre-procedural examination Z01.818 ASSESSMENTS Encounter Date Diagnosis Assessment Notes Treatment Notes Treatment Clinical Notes 02/25/2024 Hx of adenomatous colonic polyps (ICD-10 - Z86.010) 02/25/2024 Chronic constipation (ICD-10 - K59.09) 02/25/2024 Encounter for screening for malignant neoplasm of colon (ICD-10 - Z12.11) Eat very lightly 2 days before the colonoscopy and take 2 extra Dulcolax pills 2 days before the colonoscopy. 02/25/2024 Pre-procedural examination (ICD-10 - Z01.818) PLAN OF TREATMENT Treatment Notes Assessment Notes Encounter for screening for malignant neoplasm of colon Eat very lightly 2 days before the colonoscopy and take 2 extra Dulcolax pills 2 days before the colonoscopy. Future Test Test Name Order Date COLONOSCOPY 02/25/2024 Next Appt Details Follow Up: prn, Reason: Provider Name:Eriberto Smart , 06/15/2024 12:10:00 PM, [address] [place] [address] , [place], [place], [phone], Progress Notes * Examination Category Sub-Category Detail Notes General Examination GENERAL APPEARANCE: pleasant , well nourished, well developed, in no acute distress HEAD: EYES: sclera non-icteric EARS: NOSE: THROAT: NECK/THYROID: no cervical lymphade nopathy, neck supple HEART: S1, S2 normal CHEST: LUNGS: clear to auscultatio n bilaterally ABDOMEN: normal bowel sounds, no guarding or rigidity, no guarding or rigidity, no masses palpable, soft, nontender, nondistended NEUROLOGIC: alert and oriented SKIN: nonjaundiced, no spi ashkan angiomata EXTREMITIES: no edema PERIPHERAL PULSES: BACK: BREASTS: MUSCULOSKELETAL: MALE GENITOURINARY: LYMPH NODES: RECTAL EXAM: FEMALE GENITOURINARY: ORAL CAVITY: mucosa moist
--- OUTSIDE RECORDS SUMMARY | 2024-03-31 16:24 | XMS_ITS ---
Author Organization [facility] Address [address] [place] [address] Support Name Relationship Address Phone Ana Sixto Emergency Contact [address] [place] [address] ELISE DRUMMOND Guarantor Unknown [phone] Care Team Providers Care Pre Billing Clinician Name Role Phone Name Jean GRIFFITH Primary Care Provider Eriberto Rey [phone] REASON FOR VISIT colon screening Encounters Encounter Location Date Provider Diagnosis [facility] [address] [place] [address] 10/15/2023 Eriberto Smart PLAN OF TREATMENT Next Appt Details Provider Name:Eriberto Smart , 06/15/2024 12:10:00 PM, [address] [place] [address] , [place], [place], [phone],
--- OUTSIDE RECORDS SUMMARY | 2024-03-31 16:24 | XMS_ITS | Patient Health Record ---
Demographics Address [address] [place] [address] Preferred Language en Marital Status unmarried Restorationist Affiliation Unknown Race Ethnic Group or Author Organization [facility] Address [address] [place] [address] Support Name Relationship Address Phone Jose G Perezobi Emergency Contact [address] [place] [address] ELISE PEREZ Guarantor Unknown [phone] Care Team Providers Care Optometry Assistant Name Role Phone Name Jean GRIFFITH Primary Care Provider Eriberto Rey [phone] ALLERGIES Allergen (clinical drug ingredient) Drug/Non Drug Allergy documented on EMR Reaction Allergy Type Onset Date Status lisinopril Lisinopril Unknown Drug Allergy Activ e REASON FOR REFERRAL No Information MEDICATIONS Medication SIG (Take, Route, Frequency, Duration) [...] with food Orally Once a day Active Telmisartan 40 MG 1 tablet Orally Once a day Active traZODone HCl 50 MG Oral for 90 Active Metoprolol Tartrate 75 MG 1 tablet with food Orally Twice a day Active Toprol XL 50 MG 1 1/2 tablet Orally Once a day Active Atorvastatin Calcium 20 MG Oral for 90 Active ARIPiprazole 5 MG Oral for 90 Active Zolpidem Tartrate 10 MG 1 tablet at bedt monica as needed Orally Once a day Active Mirtazapine 15 MG 1 tablet at bedtime Orally Once a day Active IMMUNIZATIONS Vaccine Route Administration Date Status Comme nts Influenza Unknown 02/06/2018 Administered SOCIAL HISTORY Tobacco Use: Social History Observation [...] W/U Status Risk SNOMED Code Notes Problem Hx of adenomatous colonic polyps (Z86.010) Active confirmed 584423115 Problem Encounter for screening for malignant neoplasm of colon (Z12.11) Active confirmed 907252586 Problem Pre-procedural examination (Z01.818) Active confirmed 510607368090736 Problem Chronic constipation (K59.09) Active confirmed Chronic constipation (727976345) VITAL SIGNS Blood pressure diastolic 00 mm Hg 02/25/2024 Height 69 in 02/25/2024 Blood pressure systolic 00 mm Hg 02/25/2024 Weight 165 lbs 02/25/2024 BMI 24.36 kg/m2 02/25/2024 Encounters Encounter Location Date Provider Diagnosis [facility] [address] [place] [address] 09/12/2023 Eriberto Smart [facility] [address] [place] [address] 10/15/2023 Eriberto Smart [facility] [address] [place] [address] 02/25/2024 Eriberto Smart Hx of adenomatous colonic polyps Z86.010 ; Chronic constipation K59.09 ; Encounter for screening for malignant neoplasm of colon Z12.11 and Pre-procedural examination Z01.818 [facility] [address] [place] [address] 09/09/2023 Eriberto Smart [facility] [address] [place] [address] 10/08/2023 Eriberto Smart [facility] [address] [place] [address] 02/25/2024 Eriberto Smart ASSESSMENTS Encounter Date Diagnosis Assessment Notes Treatment [...] examination (ICD-10 - Z01.818) PLAN OF TREATMENT Future Test Test Name Order Date COLONOSCOPY 04/01/2018 COLONOSCOPY 02/25/2024 Next Appt Details Provider Name:Eriberto Smart , 06/15/2024 12:10:00 PM, [address] [place] [address], [phone], Insurance Providers Payer Name Payer Address Payer Phone Subscriber Number Group Number Insured Name Patient Relationship to Insured Coverage Start Date Coverage End Date [facility] [address] [place] [address] [id number] ELISE PEREZ Self - patient is the insured MEDICAL (GENERAL) HISTORY Medical History History ICD Code Tubular adenoma removed in ; negative colonoscopy 10-02-2010 except for diverticulosis and internal hemorrhoids GERD--EGD in 2005---small HH, no esophag itis, no Garcia's Insomnia Depression/Anxiety Hypertension Denies [place],DM,CVA,Lung disease,renal dise ase Gout Negative screening colonoscopy in 05/2018 Hyperlipidemia Surgical History Surgery Date(Month/Year) Left knee surgery Left wrist surgery
--- OUTSIDE RECORDS SUMMARY | 2024-03-31 16:24 | XMS_ITS ---
Author Organization [facility] Address [address] [place] [address] Support Name Relationship Address Phone Ana, Sixto Emergency Contact [address] [place] [address] ELISE DRUMMOND Guarantor Unknown [phone] Care Team Providers Care Retail Selling Specialist Name Role Phone Name Jean GRIFFITH Primary Care Provider Eriberto Rey [phone] REASON FOR VISIT 2 day bowel prep Encounters Encounter Location Date Provider Diagnosis [facility] [address] [place] [phone] 02/25/2024 Eriberto Smart PLAN OF TREATMENT Next Appt Details Provider Name:Eriberto Smart , 06/15/2024 12:10:00 PM, [address] [place] [address] , [place], [place], [phone],
== END 2024-03-25 08:09 | disposition home or self-care (01) ==
LOC: HO.LAB 08:08
PROVIDERS: Internal Medicine Nephrology; PCP Internal Medicine Geriatric Medicine; Visit Provider Internal Medicine Geriatric Medicine
DX: Z79.899 Other long term (current) drug therapy (principal); I10 Essential (primary) hypertension
CPT/HCPCS: 36415; 80051; 80061; 82565; 84520

== ENCOUNTER 2024-06-15 10:19 | Day surgery (SDC) | payer OTHER, SELFPAY ==
--- OUTSIDE RECORDS SUMMARY | 2024-04-07 07:20 | XMS_ITS ---
Demographics Address [address] [place] [address] Preferred Language en Marital Status unmarried Mandaen Affiliation Unknown Race Ethnic Group or Author Organization [facility] Address [address] [place] [address] Support Name Relationship Address Phone Ana Sixto Emergency Contact [address] [place] [address] ELISE DRUMMOND Guarantor Unknown [phone] Care Team Providers Care Lumpia Wrapper Maker Name Role Phone Name Jean GRIFFITH Primary Care Provider Eriberto Rey [phone] ALLERGIES Allergen (clinical drug ingredient) Drug/Non Drug [...] Chronic constipation (K59.09) Active confirmed Chronic constipation (198993828) VITAL SIGNS BMI 24.36 kg/m2 02/25/2024 Blood pressure systolic 00 mm Hg 02/25/20 24 Blood pressure diastolic 00 mm Hg 024 Height 69 in 02/25/2024 Weight 165 lbs 02/25/2024 Encounters Encounter Location Date Provider Diagnosis [facility] [address] [place] [address] 02/25/2024 Eriberto Berry Hx of adenomatous colonic [...] Provider Name:Eriberto Smart , 06/15/2024 12:10:00 PM, [address] [place] [address] , [place], [place], [phone], Progress Notes * Examination Category Sub-Category Detail [...]
--- OUTSIDE RECORDS SUMMARY | 2024-04-07 07:20 | XMS_ITS ---
Author Organization [facility] Address [address] [place] [address] Support Name Relationship Address Phone Sixto Perez Emergency Contact [address] [place] [address] ELISE PEREZ Guarantor Unknown [phone] Care Team Providers Care Medical Case Manager Name Role Phone Name Jean GRIFFITH Primary Care Provider Eriberto Rey [phone] REASON FOR VISIT 2 day bowel prep MEDICATIONS Medication SIG (Take, Route, Frequency, Duration) Notes Start Date End Date Status Dulcolax (colon prep) 5 MG Take 2 Dulcol ax 2 days before the colonoscopy, and take at 3:00 p.m and 7:00p.m. Orally Take 2 Dulcolax 2 days before, and two tablets twice a day for one day for 2 days 04/05/2024 Activ e MiraLax (colon prep) 17 GM/SCOOP Take 1/2 of a 238Gm bottle of Miralax mixed in 1 quart of Gatorade 2 days before the colonoscopy, and 1 238Gm bottle mixed with Gatorade or Crystal Light Orally Take the 1/2 bottle 2 days before the colonoscopy, and begin the full bottle of Miralax at 5:00 p.m. the day before the procedure for 2 days 04/05/2024 Active Encounters Encounter Location Date Provider Diagnosis [facility] [address] [place] [address] 02/25/2024 Eriberto Smart PLAN OF TREATMENT Medication Medication Name Sig Start Date Stop Date Notes Dulcolax (colon prep) 5 MG Take 2 Dulcol ax 2 days before the colonoscopy, and take at 3:00 p.m and 7:00p.m. Orally Take 2 Dulcolax 2 days before, and two tablets twice a day for one day for 2 days 04/05/2024 MiraLax (colon prep) 17 GM/SCOOP Take 1/2 of a 238Gm bottle of Miralax mixed in 1 quart of Gatorade 2 days before the colonoscopy, and 1 238Gm bottle mixed with Gatorade or Crystal Light Orally Take the 1/2 bottle 2 days before the colonoscopy, and begin the full bottle of Miralax at 5:00 p.m. the day before the procedure for 2 days 04/05/2024 Next Appt Details Provider Name:Eriberto Smart , 06/15/2024 12:10:00 PM, [address] [place] [address] , [place], [place], [phone],
--- OUTSIDE RECORDS SUMMARY | 2024-04-07 07:20 | XMS_ITS ---
Author Organization [facility] Address [address] [place] [address] Support Name Relationship Address Phone Ana Sixto Emergency Contact [address] [place] [address] ELISE DRUMMOND Guarantor Unknown [phone] Care Team Providers Care Vegetable Farming Supervisor Name Role Phone Name Jean GRIFFITH Primary Care Provider Eriberto Rey [phone] REASON FOR VISIT colon screening Encounters Encounter Location Date Provider Diagnosis [facility] [address] [place] [address] 10/15/2023 Eriberto Smart PLAN OF TREATMENT Next Appt Details Provider Name:Eriberto Smart , 06/15/2024 12:10:00 PM, [address] [place] [address] , [place], [place], [phone],
--- OUTSIDE RECORDS SUMMARY | 2024-04-07 07:20 | XMS_ITS | Patient Health Record ---
Author Organization [facility] Address [address] [place] [address] Support Name Relationship Address Phone Jose G Perezobi Emergency Contact [address] [place] [address] ELISE PEREZ Guarantor Unknown [phone] Care Team Providers Care Upper Cutter Name Role Phone Name Jean GRIFFITH Primary Care Provider Eriberto Rey [phone] ALLERGIES Allergen (clinical drug ingredient) Drug/Non Drug [...] at bedtime Orally Once a day Active Dulcolax (colon prep) 5 MG Take 2 Dulcol ax 2 days before the colonoscopy, and take at 3:00 p.m and 7:00p.m. Orally Take 2 Dulcolax 2 days before, and two tablets twice a day for one day for 2 days 04/05/2024 Active MiraLax (colon prep) 17 GM/SCOOP Take 1/2 [...] the procedure for 2 days 04/05/2024 Active IMMUNIZATIONS Vaccine Route Administration Date Status [...] of adenomatous colonic polyps (Z86.010) Active confirmed 548660924 Problem Encounter for screening for malignant neoplasm of colon (Z12.11) Active confirmed 093061889 Problem Pre-procedural examination (Z01.818) Active confirmed 845570266282020 Problem Chronic constipation (K59.09) Active confirmed Chronic constipation (819560443) VITAL SIGNS Blood pressure diastolic 00 mm Hg 02/25/2024 Height 69 in 02/25/2024 Blood pressure systolic 00 mm Hg 02/25/2024 Weight 165 lbs 02/25/2024 BMI 24.36 kg/m2 02/25/2024 Encounters Encounter Location Date Provider Diagnosis [facility] [address] [place] [phone] 09/12/2023 Eriberto Smart [facility] [address] [place] [address] 10/15/2023 Eriberto Smart [facility] [address] [place] [address] 02/25/2024 Eriberto Smart Hx of adenomatous colonic polyps Z86.010 ; Chronic constipation K59.09 ; Encounter for screening for malignant neoplasm of colon Z12.11 and Pre-procedural examination Z01.818 [facility] [address] [place] [address] 09/09/2023 Eriberto Smart [facility] [address] [place] [address] 10/08/2023 Eriberto Smart [facility] [address] [place] [phone] 02/25/2024 Eriberto Smart ASSESSMENTS Encounter Date Diagnosis [...] Provider Name:Eriberto Smart , 06/15/2024 12:10:00 PM, [address] [place] [address] , [place], [place], [phone], Insurance Providers Payer Name Payer Address Payer Phone Subscriber Number Group Number Insured Name Patient Relationship to Insured Coverage Start Date Coverage End Date [facility] [address] [place] [address] [id number] ELISE PEREZ Self - patient is the insured MEDICAL (GENERAL) HISTORY Medical History History ICD Code Tubular adenoma removed in ; negative colonoscopy 10-02-2010 except for diverticulosis and internal hemorrhoids GERD--EGD in 2005---small HH, no esophag itis, no Garcia's Insomnia Depression/Anxiety Hypertension Denies [place],DM,CVA,Lung disease,renal dise ase Gout Negative screening colonoscopy in 05/2018 Hyperlipidemia Surgical History Surgery Date(Month/Year) Left knee surgery Left wrist surgery
[2024-06-11 14:35] VITALS: BMI 24.4
[2024-06-15 10:52] VITALS: BMI 23.1
[2024-06-15 11:05] VITALS: BP 120/67; PULSE 58; RESP 16; TEMP 37.2; O2SAT 98
--- NOTE | 2024-06-15 12:26 | HO.ANESPROP2 ---
[facility] Active Problems Active Problems: All Active Problems Essential hypertension (Acute) Chest pain (Acute) Past Medical History Medical History Hyperlipidemia Insomnia Gout Depression with anxiety Chest pain HTN (hypertension) Family History Family History Mother Diabetes Father Heart disease Surgical History Surgical History History of esophagogastroduodenoscopy (EGD) H/O colonoscopy History of surgery on arm History of left knee surgery History of Problems with Anesthesia: No Social History Social History Alcohol intake: current Alcohol intake frequency: holidays/special occasions only Patient Tobacco Use Status: Never used Tobacco Use of substances other than those prescribed or required for medical reasons: No Are you DNR?: No Advance Directives: No Advance Directives Information Provided: Yes Meds Allergies Allergy/AdvReac Type Severity Reaction Status Date / Time lisinopril [LISINOPRIL] Allergy Unknown LIP Verified 01/03/24 09:31 SWELLING Active Medications: Current Medications Sodium Biphosphate/Sodium Phosphate (Sodium Phosphate,Bradley-Dibasic 133 Ml Enema) 133 ml FL ONCE PRN PRN Reason: Poor Colonoscopy Prep Results Home Medications ?Medication ?Instructions ?Recorded ?Confirmed ?Last Taken ?Type aripiprazole 5 mg tablet 5 mg PO DAILY 03/29/22 06/11/24 Unknown History atorvastatin 20 mg tablet 20 mg PO DAILY 03/29/22 06/11/24 Unknown History clonidine HCl 0.1 mg tablet 0.2 mg PO BEDTIME 03/29/22 06/11/24 Unknown History docusate sodium 100 mg capsule 100 mg PO BID 03/29/22 06/11/24 Unknown History melatonin 5 mg tablet 10 mg PO BEDTIME 03/29/22 06/11/24 Unknown History mirtazapine 30 mg tablet 30 mg PO BEDTIME 03/29/22 06/11/24 Unknown History telmisartan 40 mg tablet 40 mg PO DAILY 03/29/22 06/11/24 Unknown History trazodone 50 mg tablet 50 mg PO BEDTIME 03/29/22 06/11/24 Unknown History zolpidem 10 mg tablet 10 mg PO BEDTIME PRN Insomnia 03/29/22 06/11/24 Unknown History ciclopirox 8 % topical solution 1 appl topical BEDTIME 11/04/23 06/11/24 Unknown History Exam Height,Weight and Vital Signs: Height 5 ft 9 in Weight 71 kg Last Vital Signs Temp 99.0 F 06/15/24 11:05 Pulse 58 06/15/24 11:05 Resp 16 06/15/24 11:05 BP 120/67 06/15/24 11:05 Pulse Ox 98 06/15/24 11:05 O2 Del Method Room Air 06/15/24 11:05 Airway Mallampati Class: II TM Dist: >3cm Neck ROM: Full Partial: Upper and Lower Loose/Missing/Broken Teeth: Yes Heart: RRR Lungs: CTA Assessment and Plan Assessment Anesthesia Assessment: Anesthesia Plan Discussed and Chart Reviewed Final Anesthetic Review History of Problems with Anesthesia: No NPO: Yes ASA Class: II Final Preanesthetic Review: Meds/Allgs Chart Reviewed, Consent Obtained/Reviewed and Anes Risks/Benef Reviewed Patient Risk: Low Procedure Risk: Low Anesthetic Plan Anesthetic Plan: MAC: Disposition: Standard PACU
[2024-06-15 14:22] VITALS: BP 122/76; PULSE 64; RESP 16; TEMP 36.3; O2SAT 98
--- NOTE | 2024-06-15 14:26 | P.BOP_ITS ---
Brief Operative Note Date of Service: 06/15/24 Pre-op diagnosis: Screening Post-op diagnosis: other (Colon polyps) Procedure: Colonoscopy to the cecum and TI with hot snare polypectomy x 4 Surgeon: Eriberto Smart MD Anesthesia: MAC Was an Clothing And Textiles Teacher used for this Procedure?: No Estimated blood loss (mL): 0 Pathology: other (A. Ascending colon polyps B. Polyp at 60cm C. Polyp at 30cm) Condition: stable Disposition: PACU
[2024-06-15 14:37] VITALS: BP 123/66; PULSE 65; RESP 16; O2SAT 99
[2024-06-15 14:44] VITALS: BP 129/70; PULSE 56; RESP 16; TEMP 36.7; O2SAT 99
--- NOTE | 2024-06-16 01:21 | OP_ITS ---
DATE OF SERVICE: 06/15/2024 SURGEON: Eriberto Smart MD INDICATIONS: Patient presents for evaluation of personal history of tubular adenoma of the colon and colorectal cancer screening. Full consent was obtained from him for this, including risks of bleeding and perforation. PREOPERATIVE DIAGNOSIS: POSTOPERATIVE DIAGNOSIS: PROCEDURE PERFORMED: Colonoscopy to the cecum and terminal ileum with hot snare polypectomy x 4. ESTIMATED BLOOD LOSS: COMPLICATIONS: ANESTHESIA: Monitored anesthesia care. ASSISTANTS: SPECIMENS: PREOPERATIVE DIAGNOSES: Colorectal cancer screening and personal history of tubular adenoma of the colon. POSTOPERATIVE DIAGNOSES: Colorectal cancer screening, personal history of tubular adenoma of the colon, colon polyps, diverticulosis, and internal hemorrhoids. DESCRIPTION OF PROCEDURE: Patient was placed in left lateral decubitus position. The digital rectal exam revealed no abnormalities. The Olympus video pediatric colonoscope was entered into the rectum and advanced easily to the cecum. Once in the cecum, I did identify normal-appearing cecal pouch with appendiceal orifice and a normal-appearing ileocecal valve. The terminal ileum was cannulated and appeared normal. Scope was withdrawn back in the colon. The entire cecum and ileocecal valve appeared normal. The scope was then slowly withdrawn assessing all mucosal surfaces carefully. Preparation was excellent. In the ascending colon were 2 flat, approximately 6 to 8 mm polyps, both of which were removed by hot snare polypectomy and recovered by suction. The polypectomy sites appeared clean, without any sign of residual polyp nor bleeding. At 60 cm and at 30 cm were flat, but raised approximately 6 to 8 mm polyps, which were both removed by hot snare polypectomy and recovered by suction. Both polypectomy sites appeared clean, without any sign of residual polyp nor bleeding. I did not visualize any other polyps, colitis, nor angiodysplasia. There was a mild amount of sigmoid diverticulosis. In the rectum, scope was retroflexed, visualizing internal hemorrhoids, but no other pathology. The rectal mucosa appeared normal. The scope was straightened and withdrawn from the patient. He tolerated the procedure well and was returned to the recovery area in stable condition. IMPRESSION: 1. Colon polyps. 2. Diverticulosis. 3. Internal hemorrhoids. PLAN: Results of the pathology will be checked. I would recommend a repeat colonoscopy in 5 years for further screening. He was advised not to use any aspirin nor NSAIDs for at least 1 week. MD CHANDU Andino/WALT / [phone] MTDHarinder
== END 2024-06-15 14:58 | disposition home or self-care (01) ==
PROVIDERS: PCP Internal Medicine Geriatric Medicine; Visit Provider Internal Medicine
PROC: 0DJD8ZZ Inspection of Lower Intestinal Tract, Via Natural or Artificial Opening Endoscopic (ICD-10-PCS; CPT 45378; principal; 2024-06-15 12:20)
DX: Z12.11 Encounter for screening for malignant neoplasm of colon (principal); Z86.0101 Personal history of adenomatous and serrated colon polyps; D12.2 Benign neoplasm of ascending colon; D12.5 Benign neoplasm of sigmoid colon; K62.1 Rectal polyp; K57.30 Diverticulosis of large intestine without perforation or abscess without bleeding; K64.8 Other hemorrhoids; K59.09 Other constipation; K21.9 Gastro-esophageal reflux disease without esophagitis; F41.8 Other specified anxiety disorders; I10 Essential (primary) hypertension; E78.5 Hyperlipidemia, unspecified; M10.9 Gout, unspecified; G47.00 Insomnia, unspecified; Z79.899 Other long term (current) drug therapy; Z88.8 Allergy status to other drugs, medicaments and biological substances; Z98.890 Other specified postprocedural states
CPT/HCPCS: 45385; 88305; J1596; J2003; J2704

== ENCOUNTER 2024-07-03 09:24 | Outpatient (AMB) | payer OTHER, SELFPAY ==
--- NOTE | 2024-07-03 09:37 | HO.NEPHOV ---
Vital Signs 07/03/24 09:40 Height 5 ft 9 in Weight 164 lb 8 oz BMI 24.3 BP 104/60 Blood Pressure Location Rt brachial Position Sitting Pulse 63 Pulse Source Pulse Oximeter Pulse Oximetry (%) 97 Oxygen Delivery Method Room Air Intake Visit Reasons: 6 mon follow up-Conf Full Stack Java Developer Required: No Accompanied by: Self / Same As Patient Allergies lisinopril [LISINOPRIL] Allergy (Unknown, Verified 07/03/24 09:40) LIP SWELLING HPI Comments Details: Yogesh was seen in follow-up of his hypertension. He feels well. He has been having mild edema from Amlodipine. He does not have any chest pain, shortness of breath, proximal nocturnal dyspnea, orthopnea or urinary symptoms. He has no orthostatic symptoms either. He checks his blood pressure at home and is at goal. He is tolerating all his medications including angiotensin receptor michael. He avoids nonsteroidal anti-inflammatory medications and maintains good hydration. He has no history of recent drug use. He has no proteinuria. He monitors his blood pressure closely at home and is at goal. [facility] Medical History Hyperlipidemia Insomnia Gout Depression with anxiety Chest pain HTN (hypertension) Surgical History History of esophagogastroduodenoscopy (EGD) H/O colonoscopy History of surgery on arm History of left knee surgery Family History Mother Diabetes Father Heart disease Social History Alcohol intake: current Alcohol intake frequency: holidays/special occasions only Patient Tobacco Use Status: Never used Tobacco Review of Systems Const All systems reviewed & are unremarkable except as noted in HPI and below Physical Exam Vital Signs: Last Vital Signs Pulse 63 07/03/24 09:40 BP 104/60 07/03/24 09:40 Pulse Ox 97 07/03/24 09:40 Oxygen Delivery Method Room Air 07/03/24 09:40 BMI result Body Mass Index 24.3 Const General: comfortable and no acute distress Orientation/consciousness: patient oriented x3 HEENT Head: Yes normocephalic Mouth: Normal oral and palatal mucosa present Eyes EOM: EOMs intact bilaterally Neck Neck: Yes supple Resp Auscultation: clear to auscultation bilaterally Cardio Jugular venous distension: no JVD Rate: regular rate GI Palpation (GI): Soft to palpation Auscultation: normal bowel sounds Skin General skin exam: no rashes or lesions noted Neuro General: patient oriented x3 and moves all extremities Extrem General: Yes no pedal edema Results Reviewed Nephrology Results: Sodium 141 mmol/L (135-145) 03/25/24 Potassium 3.6 mmol/L (3.3-5.1) 03/25/24 Chloride 108 mmol/L (96-108) 03/25/24 Carbon Dioxide 25 mmol/L (22-29) 03/25/24 BUN 11 mg/dL (9-16) 03/25/24 Creatinine 1.05 mg/dL (0.5-1.4) 03/25/24 Calcium 9.4 mg/dL (8.4-10.2) 08/09/23 Urine Creatinine 139.14 mg/dL 07/02/23 Protein/Creatinin Ratio 0.11 (<0.2) 07/02/23 Assessment & Plan Assessment & Plan (1) Essential hypertension: Code(s): I10 - Essential (primary) hypertension Category: Medical Plan Yogesh has longstanding hypertension and currently his blood pressure is at goal. He monitors his blood pressure at home every day. He is tolerating all his current medications including angiotensin receptor michael. His serum potassium and renal functions are at baseline. He is not known to have any proteinuria. He clinically has no signs of heart failure. He denies having retinopathy. If his edema gets worse, I shall cut back on Amlodipine at that time. I did not make any medication changes today. No refills requested. Follow-up blood work ordered. All questions answered. Follow-up given. Orders: Orders Electrolytes 3 Months I10 - Essential (primary) hypertension Creatinine 3 Months I10 - Essential (primary) hypertension Alanine Aminotransferase 3 Months I10 - Essential (primary) hypertension Aspartate Amino Transferase 3 Months I10 - Essential (primary) hypertension Albumin Level 3 Months I10 - Essential (primary) hypertension Blood Urea Nitrogen 3 Months I10 - Essential (primary) hypertension Protein Creatinine Ratio, Ur 3 Months I10 - Essential (primary) hypertension Coding Level of Care Code Est Pt Level 4 (96366) Diagnoses Essential hypertension I10
[2024-07-03 09:40] VITALS: BP 104/60; PULSE 63; O2SAT 97; BMI 24.3
--- OUTSIDE RECORDS SUMMARY | 2024-07-03 10:18 | XMS_ITS | Encounter Summary ---
Author Organization [facility] Address [address] [facility] [address] [place] [address] Phone Care Team Providers Care Oriental Rug Repairer Name Role Phone Name, Jean GRIFFITH Primary Care Provider [phone] Reason for Visit * Reason Comments Med Refill Encounter Details Date Type Department Care Team (Late st Contact Info) Description 11/16/2023 Refill [facility] [address] [place] [address] Karl Johnson MD [address] [facility] [address] [place] [address] Hypertension Social History Tobacco Use Types Packs/Day Years Used Date Smoking Tobacco: Former Cigarettes Q uit: 04/22/1970 Smokeless Tobacco: Never Comments:Smoking History Inf o:Some days Alcohol Use Standard Drinks/Week Comments Yes 0 (1 standard drink = 0.6 oz pure alcohol) Alcoholic Drinks/day: Occasional social drink Sex and Gender Information Value Date Recorded Sex Assigned at Not on file Legal Sex Male 5:18 PM EST Gender Identity Not on file Sexual Orientation Not on file documented as of this encounter Plan of Treatment Not on file documented as of this encounter Visit Diagnoses Diagnosis Hypertension documented in this encounter Care Teams Oriental Rug Repairer Relationship Specialty Start Date End Date Name, MD Jean [address] [place] [address] PCP - General 05/02/20 documented as of this encounter
--- OUTSIDE RECORDS SUMMARY | 2024-07-03 10:18 | XMS_ITS | Patient Health Record ---
Author Organization [facility] Address [address] [place] [address] Care Team Providers Care Director Of Estate Name Role Phone Name Jean GRIFFITH Primary Care Provider Eriberto Rey [phone] Allergies Allergen (clinical drug ingredient) Drug/Non Drug Allergy documented on EMR Reaction Allergy Type Onset Date Status lisinopril Lisinopril Unknown Drug Allergy Activ e Results Component Value Reference Range Notes Pathology (Not yet reviewed by provider) Interpretation: Performing Lab:[facility], [address] [place] [address] Notes/Report: Name: Elise Perez Age/Sex: 68/M : 1955 Unit#: [id number] Attend Dr: Eriberto Smart MD Re06/15/24 Status : [facility] Location: [facility] Disch: SPEC : [id number] RECD: 06/15/24-1514 STATUS: CHERELLE LI NUM: [id number] GUNJAN: 06/15/24-[address] [facility] [address]: Eriberto Smart MD ENTERED: 06/15/24- SP TYPE: Surgical OTHR DR: Jean Lundberg MD ORDERED: HE Stain/9, Gross Micro L4/3 Diagnosis A. Colon, ascending, polypectomies: Tubular adenomata; negative for high-grade dysplasia or carcinoma. B. Colon, 60 cm, brandy ypectomy: Hyperplastic mucosal polyp. C. Colon, 30 cm, brandy ypectomy: Tubular adenoma; negative for high-grade dysplasia or carcinoma. Clinical History Pre-Op Dx: Personal history of colon polyps, unspecified Post-Op Dx: Divertic ulosis, polyps, hemorrhoids Microscopic Description A-C. Microscopic sec tions reviewed. Material Received A. Ascending colon polyps B. Polyp at 60 cm C. Polyp at 30 cm Gross Description Received in three parts. Part A: Received in formalin labeled ?ascending colon polyps? are 3 brooks-pink and pink-red irregular tissue fra gments ranging from 0.2-0.3 cm, submitted in toto in cassette labeled A. Part B: Received in formalin labeled ?polyp at 60 cm? is a 0.25 cm brooks-pink papular tissue fragment, submitted in toto in a cassette labeled B. Part C: Received in formalin labeled ?polyp at 30 cm? is a 0.35 cm hyperemic and congested pink-red papular tis chepe fragment, submitted in toto in a cassette labeled C. CEDS CONTINUED ON NEXT PAGE Name: Elise Perez Age/Sex: 68/M : 1955 Unit#: [id number] Attend Dr: Eriberto Smart MD Re06/15/24 Status : [facility] Location: [facility] Disch: SPEC : [id number] RECD: 06/15/24-151 STATUS: CHERELLE LI NUM: [id number] GUNJAN: 06/15/24-[address] [facility] [address]: Eriberto Smart MD ENTERED: 06/15/24 SP TYPE: Surgical OTHR DR: Jean Lundberg MD ORDERED: ETIENNE Stain/9, Billy Franz L4/3 Copies To: Jean Lundberg MD [address] [place] [id number] Eriberto Smart MD [address] [place] [address] Signed (si gnature on file) Nemesio Monk MD 06/16/24 1442 END OF REPORT Reason For Referral No Information Medications Medication SIG (Take, Route, Frequency, Duration) Notes [...] the procedure for 2 days 04/05/2024 Active Immunizations Vaccine Route Administration Date Status Comme nts Influenza Unknown 02/06/2018 Administered Social History Tobacco Use: Social History Observation Description Date Details (start date - stop date) Never Smoker NA - NA Tobacco Use/Smoking Question Answer Notes Patient is a nonsmoker Alcohol Screen Question Answer Notes Did you have a drink containing alcohol in the p ast year? Yes How often did you have a dri nk containing alcohol in the past year? Never (0 point) Points 0 Interpretation Negative Section Notes: Nonsmoker; no sig alcohol Nonsmoker; no sig alcohol Problems Problem Type SNOMED Code ICD Code Onset Dates Problem Status W/U Status Risk Notes Problem 211351870 Encounter for screening for malignant neoplasm of colon (Z12.11) Active confirmed Problem 859125311 Hx of adenomatous colonic polyps (Z86.010) Active confirmed Problem 080764224811867 Pre-procedural examination (Z01.818) Active confirmed Problem Chronic constipation (192200344) Chronic constipation (K59.09) Active confirmed Vital Signs Blood pressure diastolic 00 mm Hg 02/25/2024 Height 69 in 02/25/2024 Blood pressure systolic 00 mm Hg 02/25/2024 Weight 165 lbs 02/25/2024 BMI 24.36 kg/m2 02/25/2024 Encounters Encounter Location Date Provider Diagnosis [facility] Outpatient [address] [place] [phone] 06/15/2024 Eriberto Smart [facility] [address] [place] [phone] 02/25/2024 Eriberto Smart Hx of adenomatous colonic polyps Z86.010 ; Chronic constipation K59.09 ; Encounter for screening for malignant neoplasm of colon Z12.11 and Pre-procedural examination Z01.818 [facility] [address] [place] [phone] 06/17/2024 Eriberto Smart [facility] [address] [place] [phone] 09/09/2023 Eriberto Smart [facility] [address] [place] [phone] 10/08/2023 Eriberto Smart [facility] [address] [place] [phone] 02/25/2024 Eriberto Smart Assessments Encounter Date Diagnosis (ICD Code) Assessment Notes Treatment Notes Treatment Clinical Notes Section Notes 02/25/2024 Hx of adenomatous colonic polyps (ICD-10 - Z86.010) Overall, Elise appears quite well. Given his age, excellent clinical appearance, history of a previous tubular adenoma, and his last colonoscopy being almost 6 years ago, I did recommend a followup colonoscopy for further screening purposes. We did review the rationale for this in regard to colon cancer prevention. Full consent is obtained for this, including risks of bleeding and perforation. The procedure will be done with monitored anesthesia care. In regard to his chronic constipation I did recommend that he stay on a high-fiber diet with plenty of fluids, fruit, and vegetables. I advised him to try things like Metamucil and/or MiraLax on a regular basis as well. I did give him instructions to take a couple of extra Dulcolax 2 days before the colonoscopy as well to hopefully allow for an adequate bowel prep for the procedure. Elise was comfortable with this plan. Thank you again for allowing me to participate in Elise's care. I shall continue to keep you advised of his progress. 02/25/2024 Chronic constipation (ICD-10 - K59.09) Overall, Elise appears quite well. Given his age, excellent clinical appearance, history of a previous tubular adenoma, and his last colonoscopy being almost 6 years ago, I did recommend a followup colonoscopy for further screening purposes. We did review the rationale for this in regard to colon cancer prevention. Full consent is obtained for this, including risks of bleeding and perforation. The procedure will be done with monitored anesthesia care. In regard to his chronic constipation I did recommend that he stay on a high-fiber diet with plenty of fluids, fruit, and vegetables. I advised him to try things like Metamucil and/or MiraLax on a regular basis as well. I did give him instructions to take a couple of extra Dulcolax 2 days before the colonoscopy as well to hopefully allow for an adequate bowel prep for the procedure. Elise was comfortable with this plan. Thank you again for allowing me to participate in Elise's care. I shall continue to keep you advised of his progress. 02/25/2024 Encounter for screening for malignant neoplasm of colon (ICD-10 - Z12.11) Eat very lightly 2 days before the colonoscopy and take 2 extra Dulcolax pills 2 days before the colonoscopy. Overall, Elise appears quite well. Given his age, excellent clinical appearance, history of a previous tubular adenoma, and his last colonoscopy being almost 6 years ago, I did recommend a followup colonoscopy for further screening purposes. We did review the rationale for this in regard to colon cancer prevention. Full consent is obtained for this, including risks of bleeding and perforation. The procedure will be done with monitored anesthesia care. In regard to his chronic constipation I did recommend that he stay on a high-fiber diet with plenty of fluids, fruit, and vegetables. I advised him to try things like Metamucil and/or MiraLax on a regular basis as well. I did give him instructions to take a couple of extra Dulcolax 2 days before the colonoscopy as well to hopefully allow for an adequate bowel prep for the procedure. Elise was comfortable with this plan. Thank you again for allowing me to participate in Elise's care. I shall continue to keep you advised of his progress. 02/25/2024 Pre-procedural examination (ICD-10 - Z01.818) Overall, Elise appears quite well. Given his age, excellent clinical appearance, history of a previous tubular adenoma, and his last colonoscopy being almost 6 years ago, I did recommend a followup colonoscopy for further screening purposes. We did review the rationale for this in regard to colon cancer prevention. Full consent is obtained for this, including risks of bleeding and perforation. The procedure will be done with monitored anesthesia care. In regard to his chronic constipation I did recommend that he stay on a high-fiber diet with plenty of fluids, fruit, and vegetables. I advised him to try things like Metamucil and/or MiraLax on a regular basis as well. I did give him instructions to take a couple of extra Dulcolax 2 days before the colonoscopy as well to hopefully allow for an adequate bowel prep for the procedure. Elise was comfortable with this plan. Thank you again for allowing me to participate in Elise's care. I shall continue to keep you advised of his progress. Plan Of Treatment Pending Test Test Name Order Date Pathology 06/15/2024 Future Test Test Name Order Date COLONOSCOPY 04/01/2018 COLONOSCOPY 02/25/2024 Insurance Providers Payer Name Payer Address Payer Phone Subscriber Number Group Number Insured Name Patient Relationship to Insured Coverage Start Date Coverage End Date [facility] [address] [place] [address] [id number] ELISE PEREZ Self - patient is the insured Medical (General) History Medical History History ICD Code Tubular adenoma removed in ; negative colonoscopy 10-02-2010 except for diverticulosis and internal hemorrhoids GERD--EGD in 2005---small HH, no esophag itis, no Garcia's Insomnia Depression/Anxiety Hypertension Denies [place],DM,CVA,Lung disease,renal dise ase Gout Negative screening colonoscopy in 05/2018 Hyperlipidemia Surgical History Surgery Date(Month/Year) Left knee surgery Left wrist surgery
--- OUTSIDE RECORDS SUMMARY | 2024-07-03 10:18 | XMS_ITS | Encounter Summary ---
Author Organization [facility] Address [address] [place] [address] Phone Care Team Providers Care Barge Pilot Name Role Phone Name, Jean GRIFFITH Primary Care Provider [phone] Reason for Visit * Reason Comments Med Refill Encounter Details Date Type Department Care Team (Late st Contact Info) Description 02/01/2024 Refill [facility] [address] [place] [address] Karl Johnson MD [address] [facility] [address] [place] [address] Hypertension Social History Tobacco Use [...] Hypertension documented in this encounter Care Teams Barge Pilot Relationship Specialty Start Date End Date Name, MD Jean [address] [place] [address] PCP - General 05/02/20 documented as of this encounter
--- OUTSIDE RECORDS SUMMARY | 2024-07-03 10:18 | XMS_ITS | Encounter Summary ---
Author Organization [email or web address] Address [address] [facility] 7t [place] [address] Care Team Providers Care Hotel Room Attendant Name Role Phone Name, Jean GRIFFITH Primary Care Provider [phone] Encounter Details Date Type Department Care Team (Late Contact Info) Description 09/20/2022 Abstract [facility] MEDICINE [address] [place] [address] [phone] NameJean MD [address] [place] [address] [phone] Social History Tobacco Use Types Packs/Day Years Used Date Smoking Tobacco: Never Smokeless Tobacco: Never Depression Answer Date Recorded Patient Health Questionnaire-9 Score 0 04/09/2022 Depression Answer Date Recorded Patient Health Questionnaire-2 Score 0 04/09/2022 Sex and Gender Information Value Date Recorded Sex Assigned at Male 02/19/2022 10:16 AM EDT Legal Sex Male 10:16 AM EDT Gender Identity Male 02/19/2022 10:16 AM EDT Sexual Orientation Choose not to disclose 2021 10:16 AM EDT documented as of this encounter Plan of Treatment Upcoming Encounters Date Type Department Care Team (Late st Contact Info) Description 08/11/2024 10:45 AM EDT Office Visit [facility] [address] [place] [phone] Jean Lundberg MD [address] [place] [address] [phone] documented as of this encounter Procedures Procedure Name Priority Date/Time Associated Diagnosis Comments HM COLONOSCOPY Routine 06/04/2018 3:41 PM EST documented in this encounter Results * Hm Colonoscopy (06/04/2018 3:41 PM EST) Colonoscopy Normal Normal Narrative Brenda Carranza - 06/04/2018 3:41 PM EST Recommended 5 year follow up us Historical Provider HEALTH MAINTENANCE Final Result documented in this encounter Visit Diagnoses Not on filedocumented in this encounter Additional Health Concerns Assessment Noted Time PHQ-9 Depression Total Score: 0 04/09/20 22 9:49 AM EST documented as of this encounter Care Teams Hotel Room Attendant Relationship Specialty Start Date End Date Name, MD Jean [address] [place] [address] PCP - General Family Medicine 07/27/15 documented as of this encounter
--- OUTSIDE RECORDS SUMMARY | 2024-07-03 10:18 | XMS_ITS | Encounter Summary ---
Author Organization [employer] Address [address] [place] [address] Care Team Providers Care Grain And Yeast Plants Supervisor Name Role Phone Name, Jean GRIFFITH Primary Care Provider Encounter Details Date Type Department Care Team ([facility] st Contact Info) Description 06/23/2024 Abstract [facility] MEDICINE [address] [place], [place] [phone] Name, MD Jean [address] [place], [place] [phone] Social History Tobacco Use Types Packs/Day Years Used Date Smoking Tobacco: Never Smokeless Tobacco: Never Alcohol Use Standard Drinks/Week Comments Never 0 (1 standard drink = 0.6 oz pur e alcohol) Depression Answer Date Recorded Patient Health Questionnaire-9 Score 0 08/27/2023 Patient Health Questionnaire-9 Score 0 08/27/2023 Last PHQ-9: Questionnaire Data Not on file 0 08/27/2023 Housing Stability Answer Date Recorded What is your housing situation today? I have housing today, but I am worried about losing housing in the future 08/27/[address] you li ve. Do you have problems with any of the following? None of the above 08/27/2023 Food Insecurity Answer Date Recorded Within the past 12 months, y ou worried that your food would run out before you got money to buy more: Never True 08/27/2023 Within the past 12 months,th e food you bought just didn't last and you didn't have enough money to get more: Never True 10/2023 Transportation Answer Date Recorded In the past 12 months, has l ack of transportation kept you from medical appts, meetings, work or from getting things needed for daily living? Yes, it has kept me from medical appointments or getting medications. 08/27/2023 Utilities Answer Date Recorded In the past 12 months, has t he electric, gas, oil or water company threatened to shut off services in your home? No 08/27/2023 Depression Answer Date Recorded Patient Health Questionnaire-2 Score 0 08/27/2023 Sex and Gender Information Value Date Recorded [...] Description 08/11/2024 10:45 AM EDT Office Visit [facility] MEDICINE [address] [place] [phone] Name, MD Jean [address] [place] [phone] documented as of this encounter Procedures Procedure Name Priority Date/Time Associated Diagnosis Comments COLONOSCOPY Routine 06/15/2024 documented in this encounter Results * (ABNORMAL) Colonoscopy (06/15/2024) Colonoscopy Abnormal(A ) Normal 06/15/2024 Jean Lundebrg MD HEALTH MAINTENANCE Final Result documented in this encounter Visit Diagnoses Not on filedocumented in this encounter Additional Health Concerns Assessment Noted Time PHQ-9 Depression Total Score: 0 08/27/19 24 9:51 AM EDT documented as of this encounter Care Teams Grain And Yeast Plants Supervisor Relationship Specialty Start Date End Date Name, MD Jean [address] [place] [phone] PCP - General Family Medicine 07/27/15 documented as of this encounter
--- OUTSIDE RECORDS SUMMARY | 2024-07-03 10:18 | XMS_ITS | Encounter Summary ---
Author Organization [facility] Address [address] [facility] [address] [place] [address] Phone Care Team Providers Care Transit Manager Name Role Phone Name, Jean GRIFFITH Primary Care Provider [phone] Reason for Visit * Reason Comments Med Refill Encounter Details Date Type Department Care Team (Late st Contact Info) Description 11/11/2023 Refill [facility] [address] [facility] [address] [place] [address] Jose Elias Walters MD [address] [facility] [address] [place] [address] Social History Tobacco Use Types Packs/Day Years [...] documented as of this encounter Visit Diagnoses Not on filedocumented in this encounter Care Teams Transit Manager Relationship Specialty Start Date End Date Name, MD Jean [address] [place] [address] PCP - General 05/02/20 documented as of this encounter
--- OUTSIDE RECORDS SUMMARY | 2024-07-03 10:18 | XMS_ITS ---
Demographics Address [address] [place] [address] Preferred Language en Marital Status unmarried Moravian Affiliation Unknown Race Ethnic Group or Author Organization [facility] Address [address] [place] [address] Support Name Relationship Address Phone Sixto Perez Emergency Contact [address] [place] [address] ELISE PEREZ Guarantor Unknown [phone] Care Team Providers Care Metal Sash Setter Name Role Phone Name Jean GRIFFITH Primary Care Provider Eriberto Rey [phone] Encounters Encounter Location Date Provider Diagnosis [facility] [address] [place] [address] 06/17/2024 Eriberto Smart Plan Of Treatment No Information Progress Notes * FAHEEM PEREZOB: 5 (68 yo M)Acc No.[id number]:06/17/2024 Patient:?ELISE PEREZ :1955???Age:68 Y???Sex:Male Address:[address] [address] * * Date:?
--- OUTSIDE RECORDS SUMMARY | 2024-07-03 10:18 | XMS_ITS | Encounter Summary ---
Author Organization [employer] Address [address] [facility] 7t [place] [address] Care Team Providers Care Shoe Repairer Helper Name Role Phone Name, Jean GRIFFITH Primary Care Provider [phone] Encounter Details Date Type Department Care Team (Latest Contact Info) Description 03/30/2019 Abstract [facility] CONVERSIONS Dental, Provider, DDS Social History Tobacco Use Types Packs/Day Years Used Date Smoking Tobacco: Never Assessed Sex and Gender Information Value Date Recorded [...] Description 08/11/2024 10:45 AM EDT Office Visit [facility] MEDICINE [address] [place] [address] Name, MD Jean [address] [place] [address] documented as of this encounter Visit Diagnoses Not on filedocumented in this encounter Care Teams Shoe Repairer Helper Relationship Specialty Start Date End Date Name, MD Jean [address] [place] [address] PCP - General Family Medicine 07/27/15 documented as of this encounter
--- OUTSIDE RECORDS SUMMARY | 2024-07-03 10:18 | XMS_ITS ---
Author Organization [facility] Address [address] [place] [phone] Support Name Relationship Address Phone Sixto Perez Emergency Contact [address] [place] [address] ELISE PEREZ Guarantor Unknown [phone] Care Team Providers Care Retail Business Manager Name Role Phone Name Jean GRIFFITH Primary Care Provider Eriberto Rey [phone] REASON FOR VISIT 2 day bowel prep Medications Medication SIG (Take, Route, Frequency, Duration) [...] Active Encounters Encounter Location Date Provider Diagnosis [facility] [address] [place] [phone] 02/25/2024 Eriberto Smart Plan Of Treatment Medication Medication Name Sig Start Date Stop [...] before the procedure for 2 days 04/05/2024 Progress Notes * FAHEEM PEREZOB: 5 (68 yo M)Acc No.[id number]:02/25/2024 Patient:?ELISE PEREZ :1955???Age:68 Y???Sex:Male Address:[address] [place] [phone] * Refills? Start MiraLax (colon prep) Powder, 17 GM/SCOOP, Orally, 2, Take 1/2 of a 238Gm bottle of Miralax mixed in 1 quart of Gatorade 2 days before the colonoscopy, and 1 238Gm bottle mixed with Gatorade or Crystal Light, Take the 1/2 bottle 2 days before the colonoscopy, and begin the full bottle of Miralax at 5:00 p.m. the day before the procedure, 2 days, Refills=0 Start Dulcolax (colon prep) Tablet Delayed Release, 5 MG, Orally, 6, Take 2 Dulcolax 2 days before the colonoscopy, and take at 3:00 p.m and 7:00p.m., Take 2 Dulcolax 2 days before, and two tablets twice a day for one day, 2 days, Refills=0 * true * Date:? Generated for Danyell peter/Ami/Abby on:?07/03/2024 10:18 AM EDT
--- OUTSIDE RECORDS SUMMARY | 2024-07-03 10:18 | XMS_ITS | Clinical Summary ---
Author Organization [employer] Address [address] [facility] [address] [place] [address] Care Team Providers Care Mobile Product Manager Name Role Phone Name, Jean GRIFFITH Primary Care Provider [phone] Allergies Active Allergy Reactions Criticality Noted Date Comments Lisinopril Angioedema 05/05/2010 Medications amLODIPine (Norvasc) 10 MG tablet take 1 tablet by oral route every day 2 Active aspirin 81 MG EC tablet take 1 tablet by oral route every day 2 Active cloNIDine (Catapres) 0.1 MG tablet take 1 tablet by oral route 2 times every day Active melatonin 5 MG tablet take 2 tablet by oral route every bedtime Active metoprolol succinate XL (Toprol-XL) 50 MG 24 hr tablet take 1.5 tablets by oral route every day Active mirtazapine (Remeron) 15 MG tablet take 1 tablet by oral route every day before bedtime 2 Active Multiple Vitamins-Minerals (Multi-Day Plus Minerals) tablet one tablet once a day 0 Active OLANZapine (ZyPREXA) 7.5 MG tablet take 1 tablet by oral route every day Active docusate sodium (Colace) 100 MG capsuleIndication s:Constipation, unspecified constipation type TAKE 1 CAPSULE BY MOUTH TWICE A DAY 180 capsule 1 4 Active telmisartan (MIcarDIS) 40 MG tablet TAKE 1 TABLET BY MOUTH EVERY DAY IN THE MORNING 90 tablet 3 4 Active atorvastatin (Lipitor) 20 MG tabletIndications :Hypercholesterol emia TAKE 1 TABLET BY MOUTH EVERY DAY 90 tablet 3 4 Active Active Problems Problem Noted Date Diagnosed Date Hypercholesterolemia 03/23/2022 Aortic valve regurgitation 08/04/2014 Anxiety 03/05/2012 Depressive disorder 03/05/2012 Gout 03/05/2012 Hypertriglyceridemia 03/05/2012 Essential hypertension 03/05/2012 Erectile dysfunction 03/05/2012 Impaired glucose tolerance 03/05/2012 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 Diverticulosis. 2. Internal hemorrhoids. PLAN: Given the previous history of a colon tubular adenoma, I would recommend a repeat colonoscopy in 5 years for further screening. He will otherwise see me on a p.r.n. basis. This has been discussed with his daughter. Eriberto Smart MD Resolved Problems Problem Noted Date Diagnosed Date Resolved Date Hyperkalemia 12/29/2020 12/04/2022 Hypo-osmolality and hyponatremia 12/29/2020 12/04/2022 Anemia 03/05/2012 08/27/2023 Hyponatremia 03/05/2012 04/09/2024 Encounters Date Type Department Care Team Description 06/23/2024 Abstract [facility] [address] [place] [address] Name, MD Jean 05/29/2024 9:15 AM EST Office Visit [address] [address] Christian Goel MD Seborrheic keratosis (Primary Dx) 05/29/2024 Travel 05/01/2024 1:00 PM EST Office Visit [address] [address] Christian Goel MD Seborrheic keratosis (Primary Dx) 05/01/2024 Travel 04/09/2024 10:30 AM EST Office Visit [address] [address] NameJean MD Essential hypertension (Primary Dx); Tubular adenoma from Last 3 Months Immunizations Name Administration Dates Next Due Hep B, adult 05/18/2003,01/18/2003,12/16/2002 Influenza High-dose Quadriva lent Preservative Free 01/12/2022,12/30/2020 Influenza Injectable Quadriv alant Preservative Free IIV4 MDCK 01/19/2019,02/19/2018,01/01/2017 Influenza Quadrivalent Adjuvanted 01/10/2023 Influenza injectable quadriv alent IIV4 with preservative 02/08/2015 Influenza injectable quadriv alent preservative free 01/26/2016 Influenza, High Dose Seasona l, Preservative Free 01/02/2024,01/04/2015 Influenza, IIV3, injectable 03/10/2014, 9 Moderna Covid-19 Vaccine 12+ 06/27/2021,12/17/19 21,11/15/2020 Pneumococcal Conjugate PCV 20 04/09/2022 TD (adult), 2 Lf tetanus tox oid, preservative free, adsorbed 12/16/2002 Tdap 08/27/2023,08/11/2013 Zoster, Recombinant 02/19/2023,11/13/2022 Social History Tobacco Use Types Packs/Day Years Used Date Smoking Tobacco: Never Smokeless Tobacco: Never Tobacco Cessation:Counseling Given: Not Answered Alcohol Use Standard Drinks/Week Comments Never 0 [...] not to disclose 2021 10:16 AM EDT Last Filed Vital Signs Vital Sign Reading Time Taken Comments Blood Pressure 116/69 05/29/2024 9:05 AM EST Pulse 85 05/29/2024 9:05 AM EST Temperature 35.5 ??C (95.9 ??F) 05/29/2024 9:05 AM ES T Respiratory Rate 19 05/29/2024 9:05 AM EST Oxygen Saturation 99% 05/29/2024 9:05 AM EST Inhaled Oxygen Concentration - - Weight 75.1 kg (165 lb 9.6 oz) 05/29/2024 9:05 A M EST Height 170.2 cm (5' 7 ) 04/09/2024 10:10 AM EST Body Mass Index 25.94 04/09/2024 10:10 AM EST Plan of Treatment Upcoming Encounters Date Type Department Care Team (Late st Contact Info) Description 08/11/2024 10:45 AM EDT Office Visit [facility] [address] [place] [address] Name, MD Jean [address] [place] [address] Health Maintenance Due Date Last Done Comments CT Colonography 1955 FIT DNA/Cologuard 1955 FIT 1955 FOBT 1955 Sigmoidoscopy 1955 Alcohol/Substance Use Screening 1966 RSV Patients and Patients Aged 60 years or older (1 - Risk 60-74 years 1-dose series) 2014 COVID-19 Vaccine ( season) 2023 06/27/2021, 12/16/2020, 11/15/2020 Depression Screening 08/26/2024 08/27/2023, 08/27/19 SDOH Screening 08/26/2024 08/27/2023 Tobacco Screening 05/29/2025 05/29/2024 Lipid Panel 03/25/2029 03/25/2024, 07/21, 09/07/2022, Additional history exists Colonoscopy 06/15/2029 06/15/2024, 05/23, 06/04/2018 Colorectal Cancer Screening 06/15/2029 DTaP/Tdap/Td Vaccines (3 - Td or Tdap) 08/26/2033 08/27/2023, 08/11/2013, 12/16/2002 Hepatitis B Vaccines Completed 05/18/2003, 01/18/2003, 12/16/2002 Pneumococcal Vaccine: 50+ Years Completed 04/09/2022 Zoster Vaccines Completed 02/19/2023, 11/13/2022 Hepatitis C Screening Completed 08/09/2023 Influenza Vaccine Completed 01/02/2024, , 01/12/2022, Additional history exists HIB Vaccines Aged Out No longer eligi ble based on patient's age to complete this topic HPV Vaccines Aged Out No longer eligi ble based on patient's age to complete this topic Hepatitis A Vaccines Aged Out No long er eligible based on patient's age to complete this topic IPV Vaccines Aged Out No longer eligi ble based on patient's age to complete this topic Meningococcal Vaccine Aged Out No robert maico eligible based on patient's age to complete this topic RSV under 20 months Aged Out No longe r eligible based on patient's age to complete this topic Rotavirus Vaccines Aged Out No longer eligible based on patient's age to complete this topic Procedures Procedure Name Priority Date/Time Associated Diagnosis Comments HEMATOXYLIN AND EOSIN STAIN Routine 06/15/2024 1:50 PM EST HM COLONOSCOPY Routine 06/15/2024 LIPID PANEL, STANDARD Routine 03/25/2024 8:27 AM EST On statin therapy HEPATITIS C ANTIBODY Routine 08/09/2023 11:10 AM EDT Need for hepatitis C screening test from Last 3 Months or Most Recently Relevant to Health Maintenance Results * Hematoxylin and Eosin Stain (06/15/2024 1:50 PM EST) 06/15/2024 1:50 PM EST 06/15/2024 3:15 PM EST [facility] - 06/16/2024 2:42 PM EST ----- ------- Name: Yogesh Perez ? Age/Sex: 68/M ? : 1955 Unit#: [id number] ?? Attend Dr: Eriberto Smart MD ?Re06/15/24 ?Status: DEP SDC ? Location: HO.SSS ?Disch: ? ----- ------- SPEC : [id number] ?RECD: 06/15/24-1514 ? STATUS: ??SOUT ? REQ NUM: [id number] ? GUNJAN: 06/15/24-7760 ? SUBM DR: Eriberto Smart MD ? ENTERED: ??06/15/24-6281 ?SP TYPE: Surgical ? OTHR : Name,Jean GRIFFITH ? ORDERED: ??HE Stain/9, Gross Micro L4/3 ? Diagnosis ?? A. ??Colon, ascending, polypectomies: ??Tubular adenomata; negative for high- grade ?? dysplasia or carcinoma. ? B. ??Colon, 60 cm, polypectomy: ??Hyperplastic mucosal polyp. ? C. ??Colon, 30 cm, polypectomy: ??Tubular adenoma; negative for high-grade dysplasia or ?? carcinoma. ?Clinical History Pre-Op Dx: ??Personal history of colon polyps, unspecified Post-Op Dx: Diverticulosis, polyps, hemorrhoids ?Microscopic Description A-C. ??Microscopic sections reviewed. ? Material Received ?? A. Ascending colon polyps ?? B. Polyp at 60 cm ?? C. Polyp at 30 cm ? Gross Description Received in three parts. Part A: ??Received in formalin labeled ?ascending colon polyps? are 3 brooks-pink and pink-red irregular tissue fragments ranging from 0.2-0.3 cm, submitted in toto in cassette labeled A. Part B: ??Received in formalin labeled ?polyp at 60 cm? is a 0.25 cm brooks-pink papular tissue fragment, submitted in toto in a cassette labeled B. Part C: ??Received in formalin labeled ?polyp at 30 cm? is a 0.35 cm hyperemic and congested pink-red papular tissue fragment, submitted in toto in a cassette labeled Adriana BARNETT ? CONTINUED ON NEXT PAGE ----- ------- Name: Yogesh Perez ? Age/Sex: 68/M ? : 1955 Unit#: [id number] ?? Attend Dr: Eriberto Smart MD ?Re06/15/24 ?Status: DEP SDC ? Location: HO.SSS ?Disch: ? ----- ------- SPEC : [id number] ?RECD: 06/15/24-234 ? STATUS: ??SOUT ? REQ NUM: [id number] ? GUNJAN: 06/15/24-0540 ? SUBM DR: Eriberto Smart MD ? ENTERED: ??06/15/24-1525 ?SP TYPE: Surgical ? OTHR DR: Name,Jean GRIFFITH ? ORDERED: ??HE Stain/9, Gross Micro L4/3 ? Copies To: ?? Name,Jean GRIFFITH ?? [address] [facility] ?? [place] [address] ?? [phone] ?? Eriberto Smart MD ?? [facility] ?? [address] ?? [place] [address] ?? [phone] ----- ------- Signed (signature on file) Nemesio Monk MD 06/16/24 9501 ? ----- ------- ? END OF REPORT ? us Generic External Data Provider LAB BLOOD ORDERAB LES Final Result Performing Organization Address City/[facility]/ZIP Co de Phone Number [facility] [address] [place] [address] [phone] * (ABNORMAL) Hm Colonoscopy (06/15/2024) Colonoscopy Abnormal(A ) Normal 06/15/2024 us Jean Lundberg MD HEALTH MAINTENANCE Final Result * (ABNORMAL) Lipid Panel, Standard (03/25/2024 8:27 AM EST) Triglycerides 46 <150 mg/dL [facility] Comment:Desirable Triglyceri de: less than 150 mg/dLBorderline High Triglyceride 150-199 mg/dLHigh Triglyceride: 200-499 mg/dLVery High Triglyceride: greater than or equal to 5OO mg/dL Cholesterol 108 <200 mg/dL [facility] Comment:Desirable Cholestero l: less than 200 mg/dLBorderline High Cholesterol: 200-239 mg/dLHigh Cholesterol: greater than 239 mg/dL LDL Cholesterol Calculated 64 <100 mg/dL [facility] Comment:Desirable LDL: less than 100 mg/dLNear Optimal/Above Optimal LDL: 110- 129 mg/dLBorderline High LDL: 130-159 mg/dLHigh LDL: 160-189 mg/dLVery High LDL: greater than or equal to 190 mg/dL HDL Cholesterol 35(L) >40 mg/dL [facility] Comment:Desirable HDL: great er than 40 mg/dL Note: This HDL assay may give artificially low results in patients with liver disease. Blood Venous blood specimen / Unknown 03/25/2024 8:27 AM EST 03/25/2024 8:27 AM EST us Jean Lundberg MD LAB BLOOD ORDERABLES Final Resul t Performing Organization Address City/[facility]/ZIP Co de Phone Number [facility] [address] [place] [address] [phone] * Hepatitis C Ab (08/09/2023 11:10 AM EDT) Hepatitis C Antibody Nonreactive Nonreactive [facility] Comment:Antibodies to HCV no t detected; does not exclude early acuteHCV infection. Blood Venous blood specimen / Unknown 08/09/2023 11:10 AM EDT 08/09/2023 11:19 AM EDT us Jean Name LAB BLOOD ORDERABLES Final Resul t [facility] [address] [place] [address] [phone] from Last 3 Months or Most Recently Relevant to Health Maintenance Insurance [facility] Care Teams Mobile Product Manager Relationship Specialty Start Date End Date Name, MD Jean [address] [place] [phone] PCP - General Family Medicine 07/27/15
--- OUTSIDE RECORDS SUMMARY | 2024-07-03 10:18 | XMS_ITS | Clinical Summary ---
Author Organization [facility] Address [address] [place] [address] Phone Care Team Providers Care Research Scholar Name Role Phone Name, Jean GRIFFITH Primary Care Provider [phone] Allergies Active Allergy Reactions Criticality Noted Date Comments Lisinopril 12/29/2020 Medications cloNIDine (CATAPRES) 0.1 MG tablet Take 2 tablets by mouth at bed time Active Melatonin 5 MG tablet Take 1 tablet by mouth at bed time 07/16/2018 Active mirtazapine (REMERON) 30 MG tablet Take 1 tablet by mouth 1 (one) time each day Active zolpidem (AMBIEN) 10 MG tablet Take 1 tablet by mouth 1 (one) time each day Active risperiDONE (RisperDAL) 1 MG/ML oral solution Take 0.5 mg by mouth every night Active telmisartan (MICARDIS) 40 MG tablet TAKE 1 TABLET BY MOUTH EVERY DAY 90 tablet 3 11/22/2021 Active OLANZapine (ZyPREXA) 7.5 MG tablet Take 7.5 mg by mouth 1 (one) time each day in the evening 09/23/2021 Active atorvastatin (LIPITOR) 20 MG tablet Take 20 mg by mouth 1 (one) time each day 11/08/2021 Active docusate sodium (COLACE) 100 MG capsule Take 100 mg by mouth if needed 11/10/2021 Active metoprolol succinate XL (TOPROL XL) 50 MG 24 hr tabletIndicatio ns:Hypertension Take 1.5 tablets (75 mg total) by mouth in the morning. Do not crush or chew.. 135 tablet 3 03/20/2023 Active amLODIPine (NORVASC) 10 MG tablet Take 1 tablet (10 mg total) by mouth 1 (one) time each day 90 tablet 1 05/16/2023 Active Active Problems Problem Noted Date Diagnosed Date Hypertension 12/30/2020 Essential hypertension 12/29/2020 Hyperkalemia 12/29/2020 Hypo-osmolality and or hyponatremia 12/29/2020 Immunizations Name Administration Dates Next Due Influenza Split High Dose Preservative Free IM 0 01/04/2015 Family History Medical History Relation Comments Hypertension Father Stroke Father CVA Diabetes Mother Stroke Sibling brother, CVA Relation Status Comments Father Mother Sibling Social History Tobacco Use Types Packs/Day Years [...] on file Sexual Orientation Not on file Last Filed Vital Signs Vital Sign Reading Time Taken Comments Blood Pressure 118/70 11/22/2021 1:08 PM EDT Pulse 73 11/22/2021 1:08 PM EDT Temperature - - Respiratory Rate - - Oxygen Saturation 96% 12/30/2020 10:33 AM EDT Inhaled Oxygen Concentration - - Weight 80 kg (176 lb 6.4 oz) 11/22/2021 1:08 PM EDT Height 175.3 cm (5' 9 ) 09/16/2019 12:00 PM EDT Body Mass Index 26.05 09/16/2019 12:00 PM EDT Plan of Treatment Health Maintenance Due Date Last Done Comments Colorectal Cancer Screening: Annual FOBT 12/21/2003 Colorectal Cancer Screening: Colonoscopy 12/21/2003 Colorectal Cancer Screening: Sigmoidoscopy 12/21/2003 Hepatitis B Vaccine Aged Out 05/18/2003, 01/18/2003, 12/16/2002 No longer eligible based on patient's age to complete this topic Pneumococcal Vaccine: 65+ Years Completed 04/09/2022 Influenza Vaccine Completed 01/02/2024, , 01/19/2019, Additional history exists Insurance [facility] ([id number]) [facility] ([id number]) [place] [id number] Care Teams Research Scholar Relationship Specialty Start Date End Date Name, MD Jean [address] [place] [address] PCP - General 05/02/20
--- OUTSIDE RECORDS SUMMARY | 2024-07-03 10:18 | XMS_ITS ---
Demographics Address [address] [place] [address] Preferred Language en Marital Status unmarried Samaritan Affiliation Unknown Race Ethnic Group or Author Organization [facility] Address [address] [place] [phone] Support Name Relationship Address Phone Sixto Perez Emergency Contact [address] [place] [address] ELISE PEREZ Guarantor Unknown [phone] Care Team Providers Care Business Mgr Name Role Phone Name Jean GRIFFITH Primary Care Provider Eriberto Rey [phone] REASON FOR VISIT screening,hx polyps Encounters Encounter Location Date Provider Diagnosis [facility] Outpatient [address] [place], [place] [phone] 06/15/2024 Eriberto Smart Plan Of Treatment No Information Progress Notes * FAHEEM PEREZOB: (68 yo M)Acc No.[id number]:06/15/2024 COLON WITH MAC Patient:?ELISE PEREZ Provider:?Eriberto Smart MD :1955???Age:68 Y???Sex:Male Mike e:06/15/2024 Address:[address] [place], [place] [address] [id number] Pcp:Jean Lundberg MD Subjective: * Chief Complaints: * ???1. Screening,hx polyps. * Medical History:? Objective: * Vitals:? Assessment: Plan: * Treatment: * * The named appointment provid er may or may not be the originator of this progress note, and it is not deemed complete until electronically signed by the appointment provider. Sign off status: Pending * Provider:?Eriberto Smart MD Date:? 025 Generated for Gelai brittani/Aliciag/eTransmitting on:?07/03/2024 10:17 AM EDT
== END 2024-07-03 10:03 | disposition home or self-care (01) ==
LOC: HO.HKA 09:25
PROVIDERS: PCP Internal Medicine Geriatric Medicine; Visit Provider Internal Medicine Nephrology
DX: I10 Essential (primary) hypertension (principal)
CPT/HCPCS: 99214

== ENCOUNTER → 2024-07-03 09:24 | Outpatient (BNVA) | payer OTHER, SELFPAY | PROVIDERS: PCP Internal Medicine Geriatric Medicine; Visit Provider Internal Medicine Nephrology | DX: I10 Essential (primary) hypertension (principal); R60.9 Edema, unspecified | CPT/HCPCS: 99212 ==

== ENCOUNTER 2024-09-28 10:13 | Outpatient (REF) | payer OTHER, SELFPAY ==
[2024-09-28 11:12] LABS: Alanine Aminotransferase 22 U/L (0-40); Albumin Level 4.8 g/dL (3.5-5.0); Anion Gap 12 (12-20); Aspartate Amino Transferase 30 U/L (5-37); Blood Urea Nitrogen 12 mg/dL (9-16); Carbon Dioxide 26 mmol/L (22-29); Chloride 106 mmol/L (96-108); Estimated Glomerular Filt Rate > 60; Potassium 4.3 mmol/L (3.3-5.1); Sodium 140 mmol/L (135-145)
--- OUTSIDE RECORDS SUMMARY | 2024-09-28 11:21 | XMS_ITS | Encounter Summary ---
Author Organization [employer] Address [address] [facility] [address] [place] [address] Care Team Providers Care Botany Technician Name Role Phone Name, Jean GRIFFITH Primary Care Provider [phone] Encounter Details Date Type Department Care Team (Late st Contact Info) Description 06/23/2024 Abstract [facility] [address] [place], [place] [phone] Name, MD Jean [address] [place], [place] [phone] Social History Tobacco Use Types Packs/Day Years [...] Care Team (Late st Contact Info) Description 11/24/2024 11:15 AM EDT Office Visit [facility] [address] [place] [address] Name, MD Jean [address] [place] [address] documented as of this encounter Procedures Procedure Name Priority Date/Time Associated Diagnosis Comments COLONOSCOPY Routine 06/15/2024 documented in this encounter Results * (ABNORMAL) Colonoscopy (06/15/2024) Colonoscopy Abnormal(A ) Normal 06/15/2024 Jean Lundberg MD HEALTH MAINTENANCE Final Result documented in this encounter Visit Diagnoses Not on filedocumented in this encounter Additional Health Concerns Assessment Noted Time PHQ-9 Depression Total Score: 0 08/27/19 24 9:51 AM EDT documented as of this encounter Care Teams Botany Technician Relationship Specialty Start Date End Date Name, MD Jean [address] [place] [phone] PCP - General Family Medicine 07/27/15 documented as of this encounter
== END 2024-09-28 10:14 | disposition home or self-care (01) ==
LOC: HO.LAB 10:13
PROVIDERS: Visit Provider Internal Medicine Nephrology
DX: I10 Essential (primary) hypertension (principal)
CPT/HCPCS: 36415; 80051; 82040; 82565; 82570; 84156; 84450; 84460; 84520

== ENCOUNTER 2024-10-09 09:11 | Outpatient (AMB) | payer OTHER, SELFPAY ==
--- OUTSIDE RECORDS SUMMARY | 2024-10-09 09:30 | XMS_ITS | Encounter Summary ---
Author Organization [employer] Address [address] [facility] [address] [place] [address] Care Team Providers Care Electronic Equipment Installer Name Role Phone Name, Jean GRIFFITH Primary Care Provider [phone] Encounter Details Date Type Department Care Team (Late st Contact Info) Description 06/23/2024 Abstract [facility] [address] [place], [place] [phone] Name, MD Jean [address] [place], [place] [phone] Social History Tobacco Use Types Packs/Day Years [...] Description 11/24/2024 11:15 AM EDT Office Visit [facility] [address] [place] [address] Name, MD Jean [address] [place] [address] documented as of this encounter Procedures Procedure [...] documented as of this encounter Care Teams Electronic Equipment Installer Relationship Specialty Start Date End Date Name, MD Jean [address] [place] [address] [phone] PCP - General Family Medicine 07/27/15 documented as of this encounter
--- NOTE | 2024-10-09 09:37 | HO.NEPHOV_ITS ---
Vital Signs 10/09/24 09:38 Height 5 ft 9 in Weight 165 lb 8 oz BMI 24.4 BP 126/70 Blood Pressure Location Rt brachial Position Sitting Pulse 67 Pulse Source Pulse Oximeter Pulse Oximetry (%) 97 Oxygen Delivery Method Room Air Intake Visit Reasons: 3 [place] FU-[facility] Weed Thinner Required: No Accompanied by: Self / Same As Patient Allergies lisinopril (LISINOPRIL) Allergy (Unknown, Verified 10/09/24 09:37) LIP SWELLING HPI Comments Details: Yogesh was seen in follow-up of his hypertension. He feels well. He has been having mild edema from Amlodipine. He does not have any chest pain, shortness of breath, proximal nocturnal dyspnea, orthopnea or urinary symptoms. He has no orthostatic symptoms either. He checks his blood pressure at home and is at goal. He is tolerating all his medications including angiotensin receptor michael. He avoids nonsteroidal anti-inflammatory medications and maintains good hydration. He has no history of recent drug use. He has no proteinuria. He monitors his blood pressure closely at home and is at goal. [facility] Medical History Hyperlipidemia Insomnia Gout Depression with anxiety Chest pain HTN (hypertension) Surgical History History of esophagogastroduodenoscopy (EGD) H/O colonoscopy History of surgery on arm History of left knee surgery Family History Mother Diabetes Father Heart disease Social History Alcohol intake: current Alcohol intake frequency: holidays/special occasions only Patient Tobacco Use Status: Never used Tobacco Review of Systems Const All systems reviewed & are unremarkable except as noted in HPI and below Physical Exam Vital Signs: Last Vital Signs Pulse 67 10/09/24 09:38 BP 126/70 10/09/24 09:38 Pulse Ox 97 10/09/24 09:38 Oxygen Delivery Method Room Air 10/09/24 09:38 BMI result Body Mass Index 24.4 Const General: comfortable and no acute distress Orientation/consciousness: patient oriented x3 HEENT Head: Yes normocephalic Mouth: Normal oral and palatal mucosa present Eyes EOM: EOMs intact bilaterally Neck Neck: Yes supple Resp Auscultation: clear to auscultation bilaterally Cardio Jugular venous distension: no JVD Rate: regular rate GI Palpation (GI): Soft to palpation Auscultation: normal bowel sounds General: Yes no CVA tenderness Back/Spine/Pelvis Back: no CVA tenderness Skin General skin exam: no rashes or lesions noted Neuro General: patient oriented x3 and moves all extremities Extrem General: Yes no pedal edema Results Reviewed Nephrology Results: Hgb, (14.0-18.0) 14.0 g/dl 08/09/23 WBC, (4.8-10.8) 7.7 X10*3/uL 08/09/23 Plt Count, (160-400) 261 X10*3/uL 08/09/23 Sodium, (135-145) 140 mmol/L 09/28/24 Potassium, (3.3-5.1) 4.3 mmol/L 09/28/24 Chloride, (96-108) 106 mmol/L 09/28/24 Carbon Dioxide, (22-29) 26 mmol/L 09/28/24 BUN, (9-16) 12 mg/dL 09/28/24 Creatinine, (0.5-1.4) 0.96 mg/dL 09/28/24 Calcium, (8.4-10.2) 9.4 mg/dL 08/09/23 Urine Creatinine 139.14 mg/dL 07/02/23 Protein/Creatinin Ratio, (<0.2) 0.11 07/02/23 Assessment & Plan Assessment & Plan (1) Essential hypertension: Code(s): I10 - Essential (primary) hypertension Category: Medical Plan Yogesh has longstanding hypertension and currently his blood pressure is at goal. He monitors his blood pressure at home every day. He is tolerating all his current medications including angiotensin receptor michael. His serum potassium and renal functions are at baseline. He is not known to have any proteinuria. He clinically has no signs of heart failure. He denies having retinopathy. If his edema gets worse, I shall cut back on Amlodipine at that time. I did not make any medication changes today. No refills requested. Follow-up blood work ordered. All questions answered. Follow-up given. Orders: Orders Creatinine 6 Months I10 - Essential (primary) hypertension Blood Urea Nitrogen 6 Months I10 - Essential (primary) hypertension Electrolytes 6 Months I10 - Essential (primary) hypertension Coding Level of Care Code Est Pt Level 4 (71687) Diagnoses Essential hypertension I10
[2024-10-09 09:38] VITALS: BP 126/70; PULSE 67; O2SAT 97; BMI 24.4
== END 2024-10-09 09:53 | disposition home or self-care (01) ==
LOC: HO.HKA 09:12
PROVIDERS: PCP Internal Medicine Geriatric Medicine; Visit Provider Internal Medicine Nephrology
DX: I10 Essential (primary) hypertension (principal)
CPT/HCPCS: 99214

== ENCOUNTER → 2024-10-09 09:11 | Outpatient (BNVA) | payer OTHER, SELFPAY | PROVIDERS: PCP Internal Medicine Geriatric Medicine; Visit Provider Internal Medicine Nephrology | DX: I10 Essential (primary) hypertension (principal) | CPT/HCPCS: 99212 ==

== ENCOUNTER 2024-11-02 08:32 | Outpatient (AMB) | payer OTHER, SELFPAY ==
--- OUTSIDE RECORDS SUMMARY | 2024-06-15 07:10 | XMS_ITS ---
Author Organization [facility] Address [address] [place] [phone] Support Name Relationship Address Phone Sixto Perez Emergency Contact [address] [place] [address] ELISE PEREZ Guarantor Unknown [phone] Care Team Providers Care Yolk Spray Drier Name Role Phone Name Jean GRIFFITH Primary Care Provider Eriberto Rey [phone] REASON FOR VISIT screening,hx polyps Encounters Encounter Location Date Provider Diagnosis [facility] [place] Out[place] [address] [place] [phone] 06/15/2024 Eriberto Smart Colon cancer scree debbie [...] No Information Progress Notes * FAHEEM PEREZOB: (68 yo M)Acc No.[id number]:06/15/2024 COLON WITH MAC Patient: ELISE LEBLANC Provider: Joseph Smart MD :1955 A ge:68 Y S ex:Male Date:06/15/2024 Address:[address] [place] [address], [facility], [place], [id number] Pcp:Jean Lundberg MD Subjective: * Chief Complaints: * 1 . Screening,hx polyps. * Medical History: Objective: * Vitals: Assessment: * Assessment: 1. C olon cancer screening - Z12.11 (Primary) 2 . P ersonal history of colonic polyps - Z86.0100 3 . C olon polyps - K63.5 4 . D iverticulosis of large intestine without perforation or abscess without bleeding - K57.30 5 . O ther hemorrhoids - K64.8 Plan: * Treatment: * Procedure Codes: 4 5385 LESION REMOVAL COLONOSCOPY, Modifiers: PT * * The named appointment provid er may or may not be the originator of this progress note, and it is not deemed complete until electronically signed by the appointment provider. Sign off status: Pending * Provider: Joseph Smart MD Date: 0 06/15/2024 Generated for Danyell peter/Ami/Biaitting on: 0 11/02/2024 08:38 AM EDT
--- OUTSIDE RECORDS SUMMARY | 2024-11-02 08:38 | XMS_ITS | Encounter Summary ---
Author Organization [employer] Address [address] [facility] 7t [place] [address] Care Team Providers Care Dining Room Captain Name Role Phone Name, Jean GRIFFITH Primary Care Provider [phone] Encounter Details Date Type Department Care Team (Late st Contact Info) Description 06/23/2024 Abstract [facility] MED[facility]INE [address] [place], [place] [phone] Name, MD Jean [address] [place], [place] [phone] Social History Tobacco Use Types Packs/Day Years [...] Description 11/24/2024 11:15 AM EDT Office Visit [facility] [address] [place] [address] Name, MD Jean [address] [place] [address] documented as of this encounter Procedures Procedure [...] documented as of this encounter Care Teams Dining Room Captain Relationship Specialty Start Date End Date Name, MD Jean [address] [place] [address] [phone] PCP - General Family Medicine 07/27/15 documented as of this encounter
--- OUTSIDE RECORDS SUMMARY | 2024-11-02 08:38 | XMS_ITS | Encounter Summary ---
Author Organization [facility] Address [address] [facility] [address] [facility] [address] [place] [address] Phone Care Team Providers Care Application Software Developer Name Role Phone Name, Jean GRIFFITH Primary Care Provider [phone] Reason for Visit * Reason Comments Med Refill Encounter Details Date Type Department Care Team (Late st Contact Info) Description 02/01/2024 Refill [facility] [address] [place] [address] Karl Johnson MD [address] [facility] [address] [place] [address] Hypertension Social History Tobacco Use [...] Hypertension documented in this encounter Care Teams Application Software Developer Relationship Specialty Start Date End Date Name, MD Jean [address] [place] [address] PCP - General 05/02/20 documented as of this encounter
--- NOTE | 2024-11-02 09:18 | MHC.OFFVIS ---
Vital Signs 11/02/24 09:19 Height 5 ft 9 in Weight 168 lb 13.985 oz BMI 24.9 BP 110/64 Blood Pressure Location Lt brachial Position Sitting Pulse 63 Pulse Source Monitor Intake Visit Reasons: 1 yr f/up Intake Note: 1 yr f/up Property Administrator Required: No Accompanied by: Self / Same As Patient Allergies lisinopril (LISINOPRIL) Allergy (Unknown, Verified 10/09/24 09:37) LIP SWELLING Medication List - Last Reconciled 11/02/24 by Amilcar Randhawa MD amlodipine 10 mg PO DAILY aripiprazole 5 mg PO DAILY atorvastatin 20 mg PO DAILY ciclopirox 8% 1 appl topical BEDTIME clonidine HCl 0.2 mg PO BEDTIME docusate sodium 100 mg PO BID melatonin 10 mg PO BEDTIME metoprolol succinate ER 75 mg (1.5 x 50 mg) PO DAILY 90 days mirtazapine 30 mg PO BEDTIME telmisartan 40 mg PO DAILY trazodone 150 mg PO BEDTIME zolpidem 10 mg PO BEDTIME PRN HPI Comments Details: Pleasant 68 gentleman here for follow-up. He was seen previously with chest discomfort. He was referred for exercise stress test where he was able to exercise for 6 minutes 34 seconds and achieved 86% of his maximum predicted heart rate and 7.8 metabolic equivalents. He had a normal blood pressure response to exercise. He did not have any chest discomfort or EKG changes. His returning for follow-up. He said 2-3 days ago he had left-sided pressure-like sensation on a small area of the chest. He said this would come and go and lasted approximately 30 minutes. He said he has been exercising regularly including some running and weights and does not get any symptoms with exercise. He has exercised after this event on Saturday and did not have any symptoms. Blood pressure control is good. 10/24/22: He returns for follow-up. He has been active and exercising in the gym without any exertional symptoms. Occasionally gets left-sided pressure-like feeling lasting for 3 seconds usually when he sitting down watching television. He is compliant with medications. His blood pressure control is good. 04/29/2023: He returns for follow-up. He said he had some more discomfort in October but since then has not had any chest discomfort. Denying any other issues currently. Blood pressure is well controlled on multiple medications. He follows with Nephrology. 11/04/23: He is here for follow-up. He has been doing well. No exertional complaints. Occasionally gets left-sided pressure-like sensation lasting for 3-5 seconds randomly. During exertion and activities he has no symptoms. Blood pressure is well controlled. He is following with Nephrology also. 11/02/2024: He is here for follow-up. He has been doing well and has no exertional complaints. Blood pressure is well controlled. Taking medications regularly. [facility] Medical History Hyperlipidemia Insomnia Gout Depression with anxiety Chest pain HTN (hypertension) Surgical History History of esophagogastroduodenoscopy (EGD) H/O colonoscopy History of surgery on arm History of left knee surgery Family History Mother Diabetes Father Heart disease Social History Alcohol intake: current Alcohol intake frequency: holidays/special occasions only Patient Tobacco Use Status: Never used Tobacco Review of Systems Const Denies chills, Denies fatigue, Denies fever(s), Denies frequent falls, Denies weakness, Denies weight gain and Denies weight loss ENT Denies dizziness Card Denies chest pain, Denies leg edema, Denies lightheadedness, Denies palpitations, Denies dyspnea and Denies dyspnea on exertion Resp Denies cough, Denies dyspnea and Denies dyspnea on exertion GI Denies hematochezia Musc Denies abnormal gait, Denies muscle weakness, Denies numbness, Denies radiating pain into limb and Denies tingling Neuro Denies abnormal gait, Denies dizziness, Denies frequent falls, Denies numbness, Denies tingling and Denies weakness Endo Denies fatigue and Denies palpitations Physical Exam Vital Signs: Last Vital Signs Pulse 63 11/02/24 09:19 BP 110/64 11/02/24 09:19 BMI result Body Mass Index 24.9 GENERAL APPEARANCE: in no acute distress, pleasant. NECK: no carotid bruit, no jugular venous distention. SKIN: no suspicious lesions, warm and dry. HEART: no murmurs, regular rate and rhythm. LUNGS: clear to auscultation bilaterally. ABDOMEN: soft, nontender. EXTREMITIES: no edema. PERIPHERAL PULSES: equal. NEUROLOGIC: No gross deficits, AAO X 3 Office Procedures EKG Details: Sinus rhythm 63 beats per minute, normal ECG, QTC 415 milliseconds. 50487-[id number], Complete Assessment & Plan Assessment & Plan (1) Essential hypertension: Code(s): I10 - Essential (primary) hypertension Category: Medical Plan Pleasant 68 year gentleman who is here for follow-up. He was seen previously for noncardiac chest pain and hypertension. Blood pressure is well controlled and is closely following with Nephrology. Overall he has done well over the last couple of years and has no complaints pulmonary yearly follow-ups. I have advised him to follow up with us as needed from here onwards. He will continue same medications and follow up with Nephrology closely. He will reach out to us if he has any new complaints. Thank you for allowing me to participate in the care of your patient. Please feel free to contact me if you have any questions. Coding Level of Care Code Est Pt Level 3 (74325) Diagnoses Essential hypertension I10 CPT Codes EKG - CPT: 25938-[id number], Complete ([id number])
[2024-11-02 09:19] VITALS: BP 110/64; PULSE 63; BMI 24.9
== END 2024-11-02 09:54 | disposition home or self-care (01) ==
LOC: HO.HCS 08:33
PROVIDERS: PCP Internal Medicine Geriatric Medicine; Visit Provider Internal Medicine Cardiovascular Disease
DX: I10 Essential (primary) hypertension (principal)
CPT/HCPCS: 93010; 99213

== ENCOUNTER → 2024-11-02 08:32 | Outpatient (BNVA) | payer OTHER, SELFPAY | PROVIDERS: PCP Internal Medicine Geriatric Medicine; Visit Provider Internal Medicine Cardiovascular Disease | DX: I10 Essential (primary) hypertension (principal) | CPT/HCPCS: 93005; 99212 ==

== ENCOUNTER 2024-12-14 09:13 | Outpatient (REF) | payer OTHER, SELFPAY ==
--- OUTSIDE RECORDS SUMMARY | 2024-12-14 09:57 | XMS_ITS | Encounter Summary ---
Author Organization [facility] Address [address] [facility] [address] [facility] 200 [place] [address] Phone Care Team Providers Care Slat Basket Maker Helper Name Role Phone Name, Jean GRIFFITH Primary Care Provider [phone] Reason for Visit * Reason Comments Med Refill Encounter Details Date Type Department Care Team (Late st Contact Info) Description 02/01/2024 Refill [facility] [address] [place] [address] Karl Johnson MD [address] [facility] [address] [place] [address] Hypertension Social History Tobacco Use [...] Hypertension documented in this encounter Care Teams Slat Basket Maker Helper Relationship Specialty Start Date End Date Name, MD Jean [address] [place] [address] PCP - General 05/02/20 documented as of this encounter
--- OUTSIDE RECORDS SUMMARY | 2024-12-14 09:57 | XMS_ITS | Encounter Summary ---
Author Organization [employer] Address [address] [facility] 7t [place] [address] Care Team Providers Care Metal Leaf Layer Name Role Phone Name, Jean GRIFFITH Primary Care Provider [phone] Encounter Details Date Type Department Care Team (Late st Contact Info) Description 06/23/[address] [facility] MED[facility]INE [address] [place], [place] [phone] Name, MD Jean [address] [place], [place] [phone] Social History Tobacco Use Types Packs/Day Years [...] on file documented as of this encounter Procedures Procedure [...] documented as of this encounter Care Teams Metal Leaf Layer Relationship Specialty Start Date End Date Name, MD Jean [address] [place] [address] PCP - General Family Medicine 07/27/15 documented as of this encounter
[2024-12-14 11:01] LABS: Alanine Aminotransferase 28 U/L (0-40); Albumin Level 4.9 g/dL (3.5-5.0); Alkaline Phosphatase 58 U/L (39-117); Anion Gap 13 (12-20); Aspartate Amino Transferase 54 U/L (5-37); Blood Urea Nitrogen 10 mg/dL (9-16); Calcium 9.5 mg/dL (8.4-10.2); Carbon Dioxide 24 mmol/L (22-29); Chloride 101 mmol/L (96-108); Cholesterol 128 mg/dL (<200); Estimated Glomerular Filt Rate > 60; HDL Cholesterol 41 mg/dL (>40); Potassium 4.5 mmol/L (3.3-5.1); Sodium 133 mmol/L (135-145); Total Protein 7.7 g/dL (6.5-8.0); Triglycerides 53 mg/dL (<150)
== END 2024-12-14 09:14 | disposition home or self-care (01) ==
LOC: HO.LAB 09:13
PROVIDERS: PCP Internal Medicine Geriatric Medicine; Visit Provider Internal Medicine Geriatric Medicine
DX: E78.00 Pure hypercholesterolemia, unspecified (principal)
CPT/HCPCS: 36415; 80053; 80061

== ENCOUNTER 2025-03-25 08:01 | Outpatient (REF) | payer OTHER, SELFPAY ==
--- OUTSIDE RECORDS SUMMARY | 2023-10-15 06:30 | XMS_ITS ---
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 Role Phone Name Jean GRIFFITH Primary Care Provider Eriberto Rey [phone] REASON FOR VISIT colon screening Encounters Encounter Location Date Provider Diagnosis [facility] [address] [place] [id number] 10/15/2023 Eriberto Smart Plan Of Treatment No Information Progress Notes * FAHEEM PEREZOB: (69 yo M)Acc No.[id number]:10/15/2023 Progress Notes Patient: ELISE LEBLANC Provider: Joseph Smart MD :1955 A ge:67 Y S ex:Male Date:10/15/2023 Address:[facility] [address], [place], [id number] Pcp:Jean Lundberg MD Subjective: * Chief Complaints: * C olon screening * The named appointment provid er may or may not be the originator of this progress note, and it is not deemed complete until electronically signed by the appointment provider. Sign off status: Pending * Provider: Joseph Smart MD Date: 0 10/15/2023 Generated for Danyell peter/Ami/eTransmitting on: 1 05/26/2024 08:10 AM EST
--- OUTSIDE RECORDS SUMMARY | 2024-06-15 06:10 | XMS_ITS ---
Author Organization [facility] Address [address] [place] [address] Support Name Relationship Address Phone Sixto Perez Emergency Contact [address] [place] [address] ELISE PEREZ Guarantor Unknown [phone] Care Team Providers Care Camp Advisor Name Role Phone Name Jean GRIFFITH Primary Care Provider Eriberto Rey [phone] REASON FOR VISIT screening,hx polyps Encounters Encounter Location Date Provider Diagnosis [facility] [place] [address] [place] [phone] 06/15/2024 Eriberto Smart Colon cancer scree debbie [...] Notes * FAHEEM PEREZOB: (69 yo M)Acc No.[id number]:06/15/2024 COLON WITH MAC Patient: ELISE LEBLANC Provider: Joseph Smart MD :1955 A ge:68 Y S ex:Male Date:06/15/2024 Address:[address] [place], [place] [address] , [address], [id number] Pcp:Jean Lundberg MD Subjective: * Chief Complaints: [...] Modifiers: PT Billing Information: * Procedure Codes: 02183 LESION REMOVAL COLONOSCOPY. Modifiers: PT * The named appointment provid er may or may not be the originator of this progress note, and it is not deemed complete until electronically signed by the appointment provider. Sign off status: Pending * Provider: Joseph Smart MD Date: 0 06/15/2024 Generated for Danyell peter/Ami/eTransmitting on: 1 05/26/2024 08:09 AM EST
--- OUTSIDE RECORDS SUMMARY | 2025-03-25 08:09 | XMS_ITS | Encounter Summary ---
Author Organization [employer] Address [address] [facility] 7t [place] [address] Care Team Providers Care Federal Judge Name Role Phone Name, Jean GRIFFITH Primary Care Provider [phone] Encounter Details Date Type Department Care Team (Late st Contact Info) Description 06/23/2024 Abstract [facility] [address] [place], [place] [phone] Name, MD Jean [address] [place], [place] [phone] Social History Tobacco Use Types Packs/Day Years [...] Care Team (Late st Contact Info) Description 05/18/2025 11:00 AM EST Office Visit [facility] [address] [place] [address] Name, MD Jean [address] [place] [address] documented as of this encounter Procedures Procedure Name Priority Date/Time Associated Diagnosis Comments COLONOSCOPY Routine 06/15/2024 documented in this encounter Results * (ABNORMAL) Colonoscopy (06/15/2024) Colonoscopy Abnormal(A ) Normal 06/15/2024 eJan Lundberg MD HEALTH MAINTENANCE Final Result documented in this encounter Visit Diagnoses Not on filedocumented in this encounter Additional Health Concerns Assessment Noted Time PHQ-9 Depression Total Score: 0 08/27/19 24 9:51 AM EDT documented as of this encounter Care Teams Federal Judge Relationship Specialty Start Date End Date Name, MD Jean [address] [place] [address] PCP - General Family Medicine 07/27/15 documented as of this encounter
--- OUTSIDE RECORDS SUMMARY | 2025-03-25 08:10 | XMS_ITS | Patient Health Record ---
Author Organization [facility] Address [address] [place] [address] Support Name Relationship Address Phone Jose G Perezobi Emergency Contact [address] [facility] [address] [place] [address] ELISE PEREZ Guarantor Unknown [phone] Care Team Providers Care Fixed Wing Aircraft Crew Chief Name Role Phone Name Jean GRIFFITH Primary Care Provider Eriberto Rey [phone] Allergies Allergen (clinical drug ingredient) Drug/Non Drug Allergy documented on EMR Reaction Allergy Type Onset Date Status lisinopril Lisinopril Unknown Drug Allergy Activ e Results Component Value Reference Range Notes Pathology Reviewed date:07/07/2024 02:16:05 PM Interpretation: Performing Lab:[facility], [address] [place] [address] Notes/Report: Reason For Referral No Information Medications Medication SIG (Take, Route, Frequency, Duration) Notes Start Date End Date Status Micardis 40 MG Tablet 1 tablet Orally On ce a day Active amLODIPine Besylate 10 MG Tablet 1 tablet Orally Once a day Active cloNIDine HCl 0.1 MG Tablet 1 tablet at bedtime Orally Once a day Active Melatonin 5 MG Tablet 1 tablet at bedtim e as needed with food Orally Once a day Active Telmisartan 40 MG Tablet 1 tablet Orally Once a day Active traZODone HCl 50 MG Tablet Oral; Duration: 90 Active Metoprolol Tartrate 75 MG Tablet 1 tablet with food Orally Twice a day Active Toprol XL 50 MG Tablet Extended Release 24 Hour 1 1/2 tablet Orally Once a day Active Atorvastatin Calcium 20 MG Tablet Oral; Duration: 90 Active ARIPiprazole 5 MG Tablet Oral; Duration: 90 Active Zolpidem Tartrate 10 MG Tablet 1 tablet at bedtime as needed Orally Once a day Active Mirtazapine 15 MG Tablet 1 tablet at bed time Orally Once a day Active Dulcolax (colon prep) 5 MG Tablet Delayed Release Take 2 Dulcolax 2 days before the colonoscopy, and take at 3:00 p.m and 7:00p.m. Orally Take 2 Dulcolax 2 days before, and two tablets twice a day for one day; Duration: 2 days 04/05/2024 Active MiraLax (colon prep) 17 GM/SCOOP Powder Take 1/2 of a 238Gm bottle of Miralax mixed in 1 quart of Gatorade 2 days before the colonoscopy, and 1 238Gm bottle mixed with Gatorade or Crystal Light Orally Take the 1/2 bottle 2 days before the colonoscopy, and begin the full bottle of Miralax at 5:00 p.m. the day before the procedure; Duration: 2 days 04/05/2024 Active Immunizations Vaccine Route Administration Date Status Comme nts Influenza Unknown 02/06/2018 Administered Social History Tobacco Use: Social History Observation Description Date Details (start date - stop date) Never Smoker NA - NA Social History Drugs/Alcohol: Social Info Question Answer Notes Alcohol Screen Did you have a drink containing alcohol in the past year? Yes How often did you have a drink containing alcohol in the past year? Never (0 point) Points 0 Interpretation Negative Tobacco Use: Social Info Question Answer Notes Tobacco Use/Smoking Patient is a nonsmoker Additional Details Category Social Info Options Details Miscellaneous: Marital status: single Occupation: disabled Section Notes: Nonsmoker; no sig alcohol Nonsmoker; no sig alcohol Problems Problem Type SNOMED Code ICD Code Onset Dates Problem Status W/U Status Risk Notes Problem Screening for malignant neoplasm of colon (896804219) Encounter for screening for malignant neoplasm of colon (Z12.11) Active confirmed Problem History of adenomatous polyp of colon (336564732) Hx of adenomatous colonic polyps (Z86.010) Active confirmed Problem Pre-procedure evaluation check (924123850) Pre-procedural examination (Z01.818) Active confirmed Problem Chronic constipation (740362848) Chronic constipation (K59.09) Active confirmed Encounters Encounter Location Date Provider Diagnosis [facility] [address] [place] [phone] 06/15/2024 Eriberto Smart Colon cancer screeni ng Z12.11 ; Personal history of colonic polyps Z86.0100 ; Colon polyps K63.5 ; Diverticulosis of large intestine without perforation or abscess without bleeding K57.30 and Other hemorrhoids K64.8 [facility] [address] [place] [address] 06/15/2024 Eriberto Smart [facility] [address] [place] [address] 06/17/2024 Eriberto Smart Assessments Encounter Date Diagnosis (ICD Code) Assessment Notes Treatment Notes Treatment Clinical Notes Section Notes 06/15/2024 Colon cancer screening (ICD-10 - Z12.11) 06/15/2024 Personal history of colonic polyps (ICD-10 - Z86.0100) 06/15/2024 Colon polyps (ICD-10 - K63.5) 06/15/2024 Diverticulosis of large intestine without perforation or abscess without bleeding (ICD-10 - K57.30) 06/15/2024 Other hemorrhoids (ICD-10 - K64.8) Plan Of Treatment Future Test Test Name Order Date COLONOSCOPY 04/01/2018 COLONOSCOPY 02/25/2024 Insurance Providers Payer Name Payer Address Payer Phone Subscriber Number Group Number Insured Name Patient Relationship to Insured Coverage Start Date Coverage End Date [facility] [address] [place] [address] [id number] ELISE PEREZ Self - patient is the insured Medical (General) History Medical History History ICD Code Tubular adenoma removed in ; negative colonoscopy 10-02-2010 except for diverticulosis and internal hemorrhoids GERD--EGD in 2005---small HH, no esophag itis, no Garcia's Insomnia Depression/Anxiety Hypertension Denies NH,DM,CVA,Lung disease,renal dise ase Gout Negative screening colonoscopy in 05/2018 Hyperlipidemia Surgical History Surgery Date(Month/Year) Left knee surgery Left wrist surgery
--- OUTSIDE RECORDS SUMMARY | 2025-03-25 08:10 | XMS_ITS | Encounter Summary ---
Author Organization [employer] Address [address] [facility] 7t [place] [address] Care Team Providers Care Can Dragger Name Role Phone Name, Jean GRIFFITH Primary Care Provider [phone] Encounter Details Date Type Department Care Team (Latest Contact Info) Description 03/30/2019 Abstract [facility] CONVERSIONS Dental, Provider, DDS Social [...] Description 05/18/2025 11:00 AM EST Office Visit [facility] MEDICINE [address] [place] [address] Name, MD Jean [address] [place] [address] documented as of this encounter Visit Diagnoses Not on filedocumented in this encounter Care Teams Can Dragger Relationship Specialty Start Date End Date Name, MD Jean [address] [place] [address] PCP - General Family Medicine 07/27/15 documented as of this encounter
--- OUTSIDE RECORDS SUMMARY | 2025-03-25 08:10 | XMS_ITS | Encounter Summary ---
Author Organization [employer] Address [address] [place] [address] [address] [place] [address] Care Team Providers Care Teacher Of Gifted Students Name Role Phone Name, Jean GRIFFITH Primary Care Provider [phone] Encounter Details Date Type Department Care Team (Late Contact Info) Description 09/20/2022 Abstract [facility] MEDICINE [address] [place] [address] [phone] NameJean MD [address] [place] [address] [phone] Social History Tobacco Use Types Packs/Day Years [...] Description 05/18/2025 11:00 AM EST Office Visit [facility] [address] [place] [address] [phone] Jean Lundberg MD [address] [place] [address] [phone] documented as of this encounter Procedures Procedure [...] documented as of this encounter Care Teams Teacher Of Gifted Students Relationship Specialty Start Date End Date Name, MD Jean [address] [place] [address] PCP - General Family Medicine 07/27/15 documented as of this encounter
--- OUTSIDE RECORDS SUMMARY | 2025-03-25 08:10 | XMS_ITS | Clinical Summary ---
Author Organization [employer] Address [address] [facility] 7t [place] [address] Care Team Providers Care Communications Marketing Intern Name Role Phone Name, Jean GRIFFITH Primary Care Provider [phone] Allergies Active Allergy Reactions Criticality Noted Date Comments Lisinopril Angioedema 05/05/2010 Medications * This document contains information received from the source organization and may not represent a complete record from that organization. amLODIPine (Norvasc) 10 MG tablet take 1 [...] A DAY 180 capsule 1 4 Active atorvastatin (Lipitor) 20 MG tabletIndications :Hypercholesterol emia TAKE 1 TABLET BY MOUTH EVERY DAY 90 tablet 3 4 Active telmisartan (MIcarDIS) 40 MG tablet TAKE 1 TABLET BY MOUTH EVERY MORNING 90 tablet 5 Active Active Problems Problem Noted Date Diagnosed Date Chest pain 08/05/2024 Hypercholesterolemia 03/23/2022 Aortic valve regurgitation 08/04/2014 Anxiety 03/05/2012 Depressive disorder 03/05/2012 Gout 03/05/2012 Hypertriglyceridemia 03/05/2012 Essential hypertension 03/05/2012 Erectile dysfunction 03/05/2012 Impaired glucose tolerance 03/05/2012 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 Diverticulosis. 2. Internal hemorrhoids. PLAN: [...] Anemia 03/05/2012 08/27/2023 Hyponatremia 03/05/2012 04/09/2024 Encounters * This document contains information received from the source organization and may not represent a complete record from that organization. Date Type Department Care Team Description 03/05/2025 Telephone [facility] [address] [place] [phone] Mitzi Petty MA dec recalls 02/04/2025 Refill [facility] PEDS [address] [place] [address] Anay Zhong NP 01/20/2025 Telephone [facility] [address] [place] [address] Name, MD Jean Durable Medical Equipment from Last 3 Months Immunizations Immunization Administration Dates Next Due Hep B, adult [...] Answer Date Recorded Patient Health Questionnaire-9 Score 9 12/30/2024 Patient Health Questionnaire-9 Score 9 12/30/2024 Last PHQ-9: Questionnaire Data Not on file 0 12/30/2024 Housing Stability Answer Date Recorded What is your housing situation today? I am not s ure 11/24/[address] you li ve. Do you have problems with any of the following? None of the above 11/24/2024 Food Insecurity Answer Date Recorded Within the past 12 months, y ou worried that your food would run out before you got money to buy more: Sometimes True 2024 Within the past 12 months,th e food you bought just didn't last and you didn't have enough money to get more: Sometimes True 11/24/2024 Transportation Answer Date Recorded In the past 12 months, has l ack of transportation kept you from medical appts, meetings, work or from getting things needed for daily living? No 11/24/2024 Utilities Answer Date Recorded In the past 12 months, has t he electric, gas, oil or water company threatened to shut off services in your home? No 11/24/2024 Depression Answer Date Recorded Patient Health Questionnaire-2 Score 1 12/30/2024 Internet Access Answer Date Recorded Internet Access Q1 No 11/24/2024 Internet Access Q2 Not on file 11/24/2024 Sex and Gender Information Value Date Recorded Sex Assigned at Male 02/19/2022 10:16 AM EDT Legal Sex Male 10:16 AM EDT Gender Identity Male 02/19/2022 10:16 AM EDT Sexual Orientation Choose not to disclose 2021 10:16 AM EDT Last Filed Vital Signs Vital Sign Reading Time Taken Comments Blood Pressure 138/76 11/24/2024 10:57 AM EDT Pulse 71 11/24/2024 10:57 AM EDT Temperature 36.4 C (97.5 F) 11/24/2024 10:57 AM EDT Respiratory Rate 12 11/24/2024 10:57 AM EDT Oxygen Saturation 97% 11/24/2024 10:57 AM EDT Inhaled Oxygen Concentration - - Weight 76.7 kg (169 lb) 11/24/2024 10:57 AM EDT Height 170.2 cm (5' 7 ) 11/24/2024 10:57 AM EDT Body Mass Index 26.47 11/24/2024 10:57 AM EDT Plan of Treatment Upcoming Encounters Date Type Department Care Team (Late st Contact Info) Description 05/18/2025 11:00 AM EST Office Visit [facility] [address] [place] [address] Name, MD Jean [address] [place] [address] Health Maintenance Due Date Last Done Comments CT Colonography 1954 FIT DNA/Cologuard 1954 FIT 1954 FOBT 1954 Sigmoidoscopy 1954 COVID-19 Vaccine ( season) 2024 06/27/2021, 12/16/2020, 11/15/2020 Depression Monitoring 06/29/2025 12/30/2024, 025 Alcohol/Substance Use Screening 08/11/2025 08/11/2024 SDOH Screening 11/24/2025 11/24/2024 Tobacco Screening 11/24/2025 11/24/2024 Colonoscopy 06/15/2029 06/15/2024, 05/23, 06/04/2018 Colorectal Cancer Screening 06/15/2029 Lipid Panel 12/14/2029 12/14/2024, 07/2023, 08/09/2023, Additional history exists DTaP/Tdap/Td Vaccines (3 - Td or Tdap) 08/26/2033 08/27/2023, 08/11/2013, 12/16/2002 Hepatitis B Vaccines Completed 05/18/2003, 01/18/2003, 12/16/2002 Pneumococcal Vaccine: 50+ Years Completed 04/09/2022 Zoster Vaccines Completed 02/19/2023, 11/13/2022 Hepatitis C Screening Completed 08/09/2023 Influenza Vaccine Completed 12/30/2024, , 01/10/2023, Additional history exists RSV Patients and Patients Aged 60 years or older Completed 12/30/2024 HIB Vaccines Aged Out No longer eligi [...] patient's age to complete this topic Meningococcal B Vaccine Aged Out No l onger eligible based on patient's age to complete [...] Procedure Name Priority Date/Time Associated Diagnosis Comments LIPID PANEL, STANDARD Routine 12/14/2024 9:28 AM EDT Hypercholesterolemia Essential hypertension HM COLONOSCOPY Routine 06/15/2024 HEPATITIS C ANTIBODY Routine 08/09/2023 11:10 AM EDT Need for hepatitis C screening test from Last 3 Months or Most Recently Relevant to Health Maintenance Results * Lipid Panel, Standard (12/14/2024 9:28 AM EDT) Triglycerides 53 <150 mg/dL [facility] Comment:Desirable Triglyceri de: less than 150 mg/dLBorderline High Triglyceride 150-199 mg/dLHigh Triglyceride: 200-499 mg/dLVery High Triglyceride: greater than or equal to 5OO mg/dL Cholesterol 128 <200 mg/dL [facility] Comment:Desirable Cholestero l: less than 200 mg/dLBorderline High Cholesterol: 200-239 mg/dLHigh Cholesterol: greater than 239 mg/dL LDL Cholesterol Calculated 77 <100 mg/dL [facility] Comment:Desirable LDL: less than 100 mg/dLNear Optimal/Above Optimal LDL: 110- 129 mg/dLBorderline High LDL: 130-159 mg/dLHigh LDL: 160-189 mg/dLVery High LDL: greater than or equal to 190 mg/dL HDL Cholesterol 41 >40 mg/dL [facility] Comment:Desirable HDL: great er than 40 mg/dL Note: This HDL assay may give artificially low results in patients with liver disease. Blood Venous blood specimen / Unknown 12/14/2024 9:28 AM EDT 12/14/2024 9:28 AM EDT us Jean Lundberg MD LAB BLOOD ORDERABLES Final Resul t [facility] [address] [place] [address] [phone] * (ABNORMAL) Hm Colonoscopy (06/15/2024) Colonoscopy Abnormal(A ) Normal 06/15/2024 us Jean Lundberg MD HEALTH MAINTENANCE Final Result * Hepatitis C Ab (08/09/2023 11:10 AM EDT) Hepatitis C Antibody Nonreactive Nonreactive [facility] Comment:Antibodies to HCV no t detected; does not exclude early acuteHCV infection. Blood Venous blood specimen / Unknown 08/09/2023 11:10 AM EDT 08/09/2023 11:19 AM EDT us Jean Name LAB BLOOD ORDERABLES Final Resul t [facility] [address] [place] [address] [phone] from Last 3 Months or Most Recently Relevant to Health Maintenance Insurance [facility] OPTIONS (HMO D-SNP) [place] [id number] Care Teams Communications Marketing Intern Relationship Specialty Start Date End Date Name, MD Jean [address] [place] [phone] PCP - General Family Medicine 07/27/15
[2025-03-25 09:19] LABS: Anion Gap 13 (12-20); Blood Urea Nitrogen 10 mg/dL (9-16); Carbon Dioxide 25 mmol/L (22-29); Chloride 103 mmol/L (96-108); Estimated Glomerular Filt Rate > 60; Potassium 4.3 mmol/L (3.3-5.1); Sodium 137 mmol/L (135-145)
== END 2025-03-25 08:02 | disposition home or self-care (01) ==
LOC: HO.LAB 08:01
PROVIDERS: PCP Internal Medicine Geriatric Medicine; Visit Provider Internal Medicine Nephrology
DX: I10 Essential (primary) hypertension (principal)
CPT/HCPCS: 36415; 80051; 82565; 84520

== ENCOUNTER 2025-04-09 08:56 | Outpatient (AMB) | payer OTHER, SELFPAY ==
--- OUTSIDE RECORDS SUMMARY | 2023-10-15 06:30 | XMS_ITS ---
Demographics Address [address] [place] [address] Preferred Language en Marital Status unmarried Sabianism Affiliation Unknown Race Unknown Ethnic Group or Author Organization [facility] Address [address] [place] [address] Support Name Relationship Address Phone Sixto Perez Emergency Contact [address] [place] [address] ELISE PEREZ Guarantor Unknown [phone] Care Team Providers Care Proofreader Name Role Phone Name Jean GRIFFITH Primary Care Provider Eriberto Rey [phone] REASON FOR VISIT colon screening Encounters Encounter Location Date Provider Diagnosis [facility] [address] [place] [phone] 10/15/2023 Eriberto Smart Plan Of Treatment No Information Progress Notes * FAHEEM PEREZOB: (69 yo M)Acc No.[id number]:10/15/2023 Progress Notes Patient: ELISE LEBLANC Provider: Joseph Smart MD :1955 A ge:67 Y S ex:Male Date:10/15/2023 Address:[facility] [address], [place], [id number] Pcp:Jean Lundberg MD Subjective: * Chief Complaints: * C olon screening * The named appointment provid er may or may not be the originator of this progress note, and it is not deemed complete until electronically signed by the appointment provider. Sign off status: Pending * Provider: Joseph Smart MD Date: 0 10/15/2023 Generated for Danyell peter/Ami/eTransmitting on: 1 06/10/2024 09:18 AM EST
--- OUTSIDE RECORDS SUMMARY | 2024-06-15 06:10 | XMS_ITS ---
Author Organization [facility] Address [address] [place] [address] Support Name Relationship Address Phone Sixto Perez Emergency Contact [address] [place] [address] ELISE PEREZ Guarantor Unknown [phone] Care Team Providers Care Clinical Data Coordinator Name Role Phone Name Jean GRIFFITH Primary Care Provider Eriberto Rey [phone] REASON FOR VISIT screening,hx polyps Encounters Encounter Location Date Provider Diagnosis [facility] [place] Out[place] [address] [place] [id number] 06/15/2024 Eriberto Smart Colon cancer scree debbie Z12.11 ; Personal history of colonic polyps Z86.0100 ; Colon polyps K63.5 ; Diverticulosis of large intestine without perforation or abscess without bleeding K57.30 and Other hemorrhoids K64.8 Assessments Encounter Date Diagnosis (ICD Code) Assessment Notes Treatment Notes Treatment Clinical Notes Section Notes 06/15/2024 Colon cancer screening (ICD-10 - Z12.11) 06/15/2024 Personal history of colonic polyps (ICD-10 - Z86.0100) 06/15/2024 Colon polyps (ICD-10 - K63.5) 06/15/2024 Diverticulosis of large intestine without perforation or abscess without bleeding (ICD-10 - K57.30) 06/15/2024 Other hemorrhoids (ICD-10 - K64.8) Plan Of Treatment No Information Progress Notes * FAHEEM PEREZOB: (69 yo M)Acc No.[id number]:06/15/2024 COLON WITH MAC Patient: ELISE LEBLANC Provider: Joseph Smart MD :1955 A ge:68 Y S ex:Male Date:06/15/2024 Address:[facility] [address], [id number] Pcp:Jean Lundberg MD Subjective: * Chief Complaints: * S creening,hx polyps Assessment: * Assessment: 1. C olon cancer screening - Z12.11 (Primary) 2 . P ersonal history of colonic polyps - Z86.0100 3 . C olon polyps - K63.5 4 . D iverticulosis of large intestine without perforation or abscess without bleeding - K57.30 5 . O ther hemorrhoids - K64.8 Plan: * Procedure Codes: 4 5385 LESION REMOVAL COLONOSCOPY, Modifiers: PT Billing Information: * Procedure Codes: 35347 LESION REMOVAL COLONOSCOPY. Modifiers: PT * The named appointment provid er may or may not be the originator of this progress note, and it is not deemed complete until electronically signed by the appointment provider. Sign off status: Pending * Provider: Joseph Smart MD Date: 0 06/15/2024 Generated for Danyell peter/Ami/Alexandrransmitting on: 1 06/10/2024 09:18 AM EST
--- OUTSIDE RECORDS SUMMARY | 2025-04-09 09:18 | XMS_ITS | Encounter Summary ---
Author Organization [facility] Address [address] [facility] [address] [place] [address] Phone Care Team Providers Care Animal Health Technician Name Role Phone Name, Jean GRIFFITH Primary Care Provider [phone] Reason for Visit * Reason Comments Med Refill Encounter Details Date Type Department Care Team ([facility] st Contact Info) Description 11/11/2023 Refill [facility] [address] [facility] [address] [place] [address] Jose Elias Walters MD [address] [facility] [address] [place] [address] Social History Tobacco Use Types Packs/Day Years Used Date Smoking Tobacco: Former Cigarettes 0 Q uit: 04/22/1970 Smokeless Tobacco: Never Comments:Smoking [...] on filedocumented in this encounter Care Teams Animal Health Technician Relationship Specialty Start Date End Date Name, MD Jean [address] [place] [address] PCP - General 05/02/20 documented as of this encounter
--- OUTSIDE RECORDS SUMMARY | 2025-04-09 09:18 | XMS_ITS | Encounter Summary ---
Author Organization [employer] Address [address] [facility] 7t [place] [address] Care Team Providers Care Sole Trimmer Name Role Phone Name, Jean GRIFFITH Primary Care Provider [phone] Encounter Details Date Type Department Care Team (Latest Contact Info) Description 03/30/2019 Abstract [facility] Dental, Provider, DDS Social History Tobacco [...] Description 05/18/2025 11:00 AM EST Office Visit [facility] [address] [place] [address] Name, MD Jean [address] [place] [address] documented as of this encounter Visit Diagnoses Not on filedocumented in this encounter Care Teams Sole Trimmer Relationship Specialty Start Date End Date Name, MD Jean [address] [place] [address] PCP - General Family Medicine 07/27/15 documented as of this encounter
--- OUTSIDE RECORDS SUMMARY | 2025-04-09 09:18 | XMS_ITS | Patient Health Record ---
Author Organization [facility] Address [address] [place] [address] Support Name Relationship Address Phone Jose G Perezobi Emergency Contact [address] [facility] [address] [place] [address] ELISE PERZE Guarantor Unknown [phone] Care Team Providers Care Water Systems Engineer Name Role Phone Name Jean GRIFFITH Primary Care Provider Eriberto Rey [phone] Allergies Allergen (clinical drug ingredient) Drug/Non Drug Allergy documented on EMR Reaction Allergy Type Onset Date Status lisinopril Lisinopril Unknown Drug Allergy Activ e Results Component Value Reference Range Notes Pathology Reviewed date:07/07/2024 02:16:05 PM Interpretation: Performing Lab:[facility], [address] [place] [phone] Notes/Report: Reason For Referral No Information Medications [...] Problem Screening for malignant neoplasm of colon (175365813) Encounter for screening for malignant neoplasm of colon (Z12.11) Active confirmed Problem History of adenomatous polyp of colon (026826273) Hx of adenomatous colonic polyps (Z86.010) Active confirmed Problem Pre-procedure evaluation check (095778948) Pre-procedural examination (Z01.818) Active confirmed Problem Chronic constipation (798840670) Chronic constipation (K59.09) Active confirmed Encounters Encounter Location Date Provider Diagnosis [facility] Out[facility] [address] [place] [address] [phone] 06/15/2024 Eriberto Smart Colon cancer screeni ng Z12.11 ; Personal history of colonic polyps Z86.0100 ; Colon polyps K63.5 ; Diverticulosis of large intestine without perforation or abscess without bleeding K57.30 and Other hemorrhoids K64.8 [facility] [address] [place] [address] 06/15/2024 Eriberto Smart [facility] [address] [place] [address] 06/17/2024 Eriberto Smart Assessments Encounter Date Diagnosis [...] Insured Coverage Start Date Coverage End Date [facility] [address] [place] [address] [id number] ELISE PEREZ Self - patient is the insured Medical (General) History Medical History History ICD Code Tubular adenoma removed in ; negative colonoscopy 10-02-2010 except for diverticulosis and internal hemorrhoids GERD--EGD in 2005---small HH, no esophag itis, no Garcia's Insomnia Depression/Anxiety Hypertension Denies PR,DM,CVA,Lung disease,renal dise ase Gout Negative screening colonoscopy in 05/2018 Hyperlipidemia Surgical History Surgery Date(Month/Year) Left knee surgery Left wrist surgery
--- OUTSIDE RECORDS SUMMARY | 2025-04-09 09:18 | XMS_ITS | Encounter Summary ---
Author Organization [employer] Address [address] [facility] 7t [place] [address] Care Team Providers Care Holter Scanning Technician Name Role Phone Name, Jean GRIFFITH Primary Care Provider [phone] Encounter Details Date Type Department Care Team (Late st Contact Info) Description 06/23/2024 Abstract [facility] MEDICINE [address] [place], [place] [phone] Name, MD Jean [address] [place], [place] [phone] Social History Tobacco Use Types Packs/Day Years [...] Description 05/18/2025 11:00 AM EST Office Visit [facility] MEDICINE [address] [place] [address] Name, MD Jean [address] [place] [address] documented as of this encounter Procedures Procedure [...] documented as of this encounter Care Teams Holter Scanning Technician Relationship Specialty Start Date End Date Name, MD Jean [address] [place] [address] PCP - General Family Medicine 07/27/15 documented as of this encounter
--- OUTSIDE RECORDS SUMMARY | 2025-04-09 09:18 | XMS_ITS | Encounter Summary ---
Author Organization [employer] Address [address] [place] [address] 7[address] [place] [address] Care Team Providers Care Cement Fittings Maker Name Role Phone Name, Jean GRIFFITH Primary Care Provider [phone] Encounter Details Date Type Department Care Team (Late Contact Info) Description 09/20/2022 Abstract [facility] MEDICINE [address] [place] [address] [phone] NameJean MD [address] [place] [address] [phone] Social History Tobacco Use Types Packs/Day Years [...] Description 05/18/2025 11:00 AM EST Office Visit [facility] [address] [place] [address] [phone] Jean Lundberg MD [address] [place] [address] [phone] documented as of this encounter Procedures Procedure [...] documented as of this encounter Care Teams Cement Fittings Maker Relationship Specialty Start Date End Date Name, MD Jean [address] [place] [address] PCP - General Family Medicine 07/27/15 documented as of this encounter
--- OUTSIDE RECORDS SUMMARY | 2025-04-09 09:18 | XMS_ITS | Clinical Summary ---
Author Organization [employer] Address [address] [facility] 7t [place] [address] Care Team Providers Care Flying Ii Instructor Name Role Phone Name, Jean GRIFFITH Primary Care Provider [phone] Allergies Active Allergy Reactions Criticality Noted Date [...] adenoma 03/05/2012 Overview (12/04/2022): Colonoscopy 05/2018 at [facility] [place]: IMPRESSION: 1. Diverticulosis. 2. [...] Encounters Date Type Department Care Team Description 03/05/2025 Telephone [facility] MEDICINE [address] [place] [address] Mitzi Petty MA dec recalls 02/04/2025 Refill [facility] MED & PEDS [address] [place] [address] Anay Zhong NP 01/20/2025 Telephone [facility] MEDICINE [address] [place] [address] Name, MD Jean Durable Medical Equipment from [...] 05/18/2025 11:00 AM EST Office Visit [facility]IC[facility] [address] [place] [address] Name, MD Jean [address] [place] [address] Health Maintenance Due Date Last Done Comments CT Colonography 1954 FIT DNA/Cologuard 1954 FIT 1954 FOBT 1954 Sigmoidoscopy 1954 COVID-19 Vaccine ( season) 2024 06/27/2021, 12/16/2020, 11/15/2020 Depression Monitoring 06/29/2025 12/30/2024, 025 Alcohol/Substance Use Screening 08/11/2025 08/11/2024 SDOH Screening 11/24/2025 11/24/2024 Tobacco Screening 11/24/2025 11/24/2024 Colonoscopy 06/15/2029 06/15/2024, 05/23, 06/04/2018 Colorectal Cancer Screening 06/15/2029 Lipid Panel 12/14/2029 12/14/2024, 12/0 07/2023, 08/09/2023, Additional history exists DTaP/Tdap/Td Vaccines [...] Procedure Name Priority Date/Time Associated Diagnosis Comments CREATININE, SERUM Routine 03/25/2025 8:1 0 AM EST UREA NITROGEN (BUN) Routine 03/25/2025 8 :10 AM EST ELECTROLYTE PANEL Routine 03/25/2025 8:1 0 AM EST LIPID PANEL, STANDARD Routine 12/14/2024 9:28 AM EDT Hypercholesterolemia Essential hypertension HM COLONOSCOPY Routine 06/15/2024 HEPATITIS C ANTIBODY Routine 08/09/2023 11:10 AM EDT Need for hepatitis C screening test from Last 3 Months or Most Recently Relevant to Health Maintenance Results * Creatinine, Serum (03/25/2025 8:10 AM EST) Creatinine, Serum 0.92 0.5 - 1.4 mg/dL [facility] Estimated Glomerular Filt Rate >60 [facility] Comment:Chronic Kidney Disea se: Estimated GFR < 60 mL/min/1.58s1Grsemi Kidney Disease: Estimated GFR < 15 mL/min/1.73m2 03/25/2025 8:10 AM EST 03/25/2025 8:10 AM EST Generic External Data Provider LAB BLOOD ORDERAB LES Final Result Performing Organization Address City/[facility]/ZIP Co de Phone Number [facility] [address] [place] [phone] * BUN (Blood Urea Nitrogen) (03/25/2025 8:10 AM EST) Urea Nitrogen (BUN) 10 9 - 16 mg/dL [facility] 03/25/2025 8:10 AM EST 03/25/2025 8:10 AM EST Generic External Data Provider LAB BLOOD ORDERAB LES Final Result Performing Organization Address City/[facility]/ZIP Co de Phone Number [facility] [address] [place] [phone] * Electrolyte Panel (03/25/2025 8:10 AM EST) Sodium 137 135 - 145 mmol/L [facility] Potassium 4.3 3.3 - 5.1 mmol/L [facility] Chloride 103 96 - 108 mmol/L [facility] Carbon Dioxide 25 22 - 29 mmol/L [facility] Anion Gap 13 12 - 20 [facility] 03/25/2025 8:10 AM EST 03/25/2025 8:10 AM EST us Generic External Data Provider LAB BLOOD ORDERAB LES Final Result Performing Organization Address City/[facility]/ZIP Co de Phone Number [facility] [address] [place] [phone] * Lipid Panel, Standard (12/14/2024 9:28 AM EDT) Triglycerides 53 <150 mg/dL [facility] Comment:Desirable Triglyceri de: less than 150 mg/dLBorderline High Triglyceride 150-199 mg/dLHigh Triglyceride: 200-499 mg/dLVery High Triglyceride: greater than or equal to 5OO mg/dL Cholesterol 128 <200 mg/dL [facility] Comment:Desirable Cholestero l: less than 200 mg/dLBorderline High Cholesterol: 200-239 mg/dLHigh Cholesterol: greater than 239 mg/dL LDL Cholesterol Calculated 77 <100 mg/dL [facility] Comment:Desirable LDL: less than 100 mg/dLNear Optimal/Above Optimal LDL: 110- 129 mg/dLBorderline High LDL: 130-159 mg/dLHigh LDL: 160-189 mg/dLVery High LDL: greater than or equal to 190 mg/dL HDL Cholesterol 41 >40 mg/dL [facility] Comment:Desirable HDL: great er than 40 mg/dL Note: This HDL assay may give artificially low results in patients with liver disease. Blood Venous blood specimen / Unknown 12/14/2024 9:28 AM EDT 12/14/2024 9:28 AM EDT us Jean Lundberg MD LAB BLOOD ORDERABLES Final Resul t [facility] [address] [place] [phone] * (ABNORMAL) Hm Colonoscopy (06/15/2024) Colonoscopy Abnormal(A ) Normal 06/15/2024 us Jean Lundberg MD HEALTH MAINTENANCE Final Result * Hepatitis C Ab (08/09/2023 11:10 AM EDT) Hepatitis C Antibody Nonreactive Nonreactive [facility] Comment:Antibodies to HCV no t detected; does not exclude early acuteHCV infection. Blood Venous blood specimen / Unknown 08/09/2023 11:10 AM EDT 08/09/2023 11:19 AM EDT us Jeangregg Lundberg MD LAB BLOOD ORDERABLES Final Resul t [facility] [address] [place] [phone] [phone] from Last 3 Months or Most Recently Relevant to Health Maintenance Insurance [facility] C[facility] HOME OPTIONS (HMO D-SNP) [place] [id number] Care Teams Flying Ii Instructor Relationship Specialty Start Date End Date Name, MD Jean [address] [place] [address] PCP - General Family Medicine 07/27/15
--- OUTSIDE RECORDS SUMMARY | 2025-04-09 09:18 | XMS_ITS | Encounter Summary ---
Author Organization [facility] Address [address] [facility] [address] [facility] [address] [place] [address] Phone Care Team Providers Care Remote Broadcast Technician Name Role Phone Name, Jean GRIFFITH Primary Care Provider [phone] Reason for Visit * Reason Comments Med Refill Encounter Details Date Type Department Care Team (Late st Contact Info) Description 02/01/2024 Refill [facility] [address] [facility] [address] [place] [address] Karl Johnson MD [address] [facility] [address] [place] [address] Hypertension Social History Tobacco Use [...] Hypertension documented in this encounter Care Teams Remote Broadcast Technician Relationship Specialty Start Date End Date Name, MD Jean [address] [place] [address] PCP - General 05/02/20 documented as of this encounter
--- OUTSIDE RECORDS SUMMARY | 2025-04-09 09:18 | XMS_ITS | Clinical Summary ---
Author Organization [facility] Address [address] [facility] [address] [place] [address] Phone Care Team Providers Care Rug Designer Name Role Phone Name, Jean GRIFFITH Primary Care Provider [phone] Allergies Active Allergy Reactions Criticality Noted Date [...] 12/29/2020 Hypo-osmolality and or hyponatremia 12/29/2020 Immunizations Immunization Administration Dates Next Due Influenza Split High [...] Colonoscopy 12/21/2003 Colorectal Cancer Screening: Sigmoidoscopy 12/21/2003 Influenza Vaccine (#1) 2024 4, 01/10/2023, 01/19/2019, Additional history exists Hepatitis B Vaccine Aged Out 05/18/2003, 01/18/2003, 12/16/2002 No longer eligible based on patient's age to complete this topic Pneumococcal Vaccine: 50+ Years Completed 04/09/2022 Pneumococcal Vaccine: Peds (0 to 5 Years) and At-Risk Patients (6 to 49 Years) Discontinued 04/09/[address] [place] [address] ([id number]) [facility] ([id number]) Care Teams Rug Designer Relationship Specialty Start Date End Date Name, MD Jean [address] [place] [phone] PCP - General 05/02/20
--- OUTSIDE RECORDS SUMMARY | 2025-04-09 09:18 | XMS_ITS | Encounter Summary ---
Author Organization [facility] Address [address] [facility] [address] [facility] [address] [place] [address] Phone Care Team Providers Care Network Security Consultant Name Role Phone Name, Jean GRIFFITH Primary Care Provider [phone] Reason for Visit * Reason Comments Med Refill Encounter Details Date Type Department Care Team (Late st Contact Info) Description 11/16/2023 Refill [facility] [address] [facility] [address] [place] [address] Karl Johnson MD [address] [facility] [address] [place] [address] Hypertension Social History Tobacco Use [...] Hypertension documented in this encounter Care Teams Network Security Consultant Relationship Specialty Start Date End Date Name, MD Jean [address] [place] [address] PCP - General 05/02/20 documented as of this encounter
--- NOTE | 2025-04-09 09:28 | HO.NEPHOV_ITS ---
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 He feels well. He does not have any chest pain, shortness of breath, proximal nocturnal dyspnea, orthopnea or urinary symptoms. He has no orthostatic symptoms either. He is tolerating all his medications including angiotensin receptor michael. He avoids nonsteroidal anti-inflammatory medications and maintains good hydration. He has no history of recent drug use. He has no proteinuria. He monitors his blood pressure closely at home and is at goal. [facility] Medical History Hyperlipidemia Insomnia Gout Depression with anxiety Chest pain HTN (hypertension) Surgical History History of esophagogastroduodenoscopy (EGD) H/O colonoscopy History of surgery on arm History of left knee surgery Family History Mother Diabetes Father Heart disease Social History Alcohol intake: current Alcohol intake frequency: holidays/special occasions only Patient Tobacco Use Status: Never used Tobacco Review of Systems Const All systems reviewed & are unremarkable except as noted in HPI and below Physical Exam Vital Signs: Last Vital Signs Pulse 72 04/09/25 09:29 BP 110/64 04/09/25 09:29 Pulse Ox 95 04/09/25 09:29 Oxygen Delivery Method Room Air 04/09/25 09:29 BMI result Body Mass Index 24.0 Const General: comfortable and no acute distress Orientation/consciousness: patient oriented x3 HEENT Head: Yes normocephalic Mouth: Normal oral and palatal mucosa present Eyes EOM: EOMs intact bilaterally Neck Neck: Yes supple Resp Auscultation: clear to auscultation bilaterally Cardio Jugular venous distension: no JVD Rate: regular rate GI Palpation (GI): Soft to palpation Auscultation: normal bowel sounds General: Yes no CVA tenderness Back/Spine/Pelvis Back: no CVA tenderness Skin General skin exam: no rashes or lesions noted Neuro General: patient oriented x3 and moves all extremities Extrem General: Yes no pedal edema Results Reviewed Nephrology Results: Sodium, (135-145) 137 mmol/L 03/25/25 Potassium, (3.3-5.1) 4.3 mmol/L 03/25/25 Chloride, (96-108) 103 mmol/L 03/25/25 Carbon Dioxide, (22-29) 25 mmol/L 03/25/25 BUN, (9-16) 10 mg/dL 03/25/25 Creatinine, (0.5-1.4) 0.92 mg/dL 03/25/25 Calcium, (8.4-10.2) 9.5 mg/dL 12/14/24 Assessment & Plan Assessment & Plan (1) Essential hypertension: Code(s): I10 - Essential (primary) hypertension Category: Medical Plan Yogesh has longstanding hypertension and currently his blood pressure is at goal. He monitors his blood pressure at home every day. He is tolerating all his current medications including angiotensin receptor michael. His serum potassium and renal functions are at baseline. He is not known to have any proteinuria. He clinically has no signs of heart failure. He denies having retinopathy. I did not make any medication changes today. No refills requested. Follow-up blood work ordered. All questions answered. Follow-up given Orders: Orders Protein Creatinine Ratio, Ur 8 Months I10 - Essential (primary) hypertension Blood Urea Nitrogen 8 Months I10 - Essential (primary) hypertension Creatinine 8 Months I10 - Essential (primary) hypertension Electrolytes 8 Months I10 - Essential (primary) hypertension Medications: Refilled metoprolol succinate ER 75 mg (1.5 x 50 mg) PO DAILY 135 tabs 4RF 90 days Coding Level of Care Code Est Pt Level 4 (40468) Diagnoses Essential hypertension I10
[2025-04-09 09:29] VITALS: BP 110/64; PULSE 72; O2SAT 95; BMI 24.0
== END 2025-04-09 09:46 | disposition home or self-care (01) ==
LOC: HO.HKA 08:57
PROVIDERS: PCP Internal Medicine Geriatric Medicine; Visit Provider Internal Medicine Nephrology
DX: I10 Essential (primary) hypertension (principal)
CPT/HCPCS: 99214

== ENCOUNTER → 2025-04-09 08:56 | Outpatient (BNVA) | payer OTHER, SELFPAY | PROVIDERS: PCP Internal Medicine Geriatric Medicine; Visit Provider Internal Medicine Nephrology | DX: I10 Essential (primary) hypertension (principal); Z79.899 Other long term (current) drug therapy | CPT/HCPCS: 99212 ==